=== PATIENT | female | born 1990 | race Caucasian/White ===

== ENCOUNTER 2020-06-22 07:50 | Outpatient (REF) | payer OTHER, SELFPAY | END 2020-06-22 07:51 | disposition home or self-care (01) | LOC: HO.LAB 07:50 | PROVIDERS: PCP Internal Medicine Sports Medicine; Visit Provider Internal Medicine | DX: Z20.828 Contact with and (suspected) exposure to other viral communicable diseases (principal) | CPT/HCPCS: C9803; U0003 ==

== ENCOUNTER 2020-10-12 09:26 | Outpatient (REF) | payer OTHER, SELFPAY ==
[2020-10-12 09:44] LABS: COVID-19 Test Negative (Negative); IDNOW Serial# 55D5AD1C
== END 2020-10-12 09:27 | disposition home or self-care (01) ==
LOC: HO.LAB 09:26
PROVIDERS: Visit Provider Internal Medicine
DX: Z20.822 Contact with and (suspected) exposure to COVID-19 (principal)
CPT/HCPCS: 36415; 87635; C9803

== ENCOUNTER 2020-11-07 20:42 | Emergency (ER) | payer OTHER, SELFPAY ==
[2020-11-07 20:47] VITALS: BP 130/95; PULSE 83; RESP 36; TEMP 36.8; O2SAT 98; BMI 32.9
--- NOTE | 2020-11-07 21:54 | ED.GENADULT ---
HPI - General Adult General Chief complaint: General Medical Stated complaint: Panic Attack Time Seen by Provider: 11/07/20 21:53 Source: patient Mode of arrival: ambulatory History of Present Illness HPI narrative: 30-year-old female without significant past medical history aside from longstanding history of anxiety and panic attack for which she has never been evaluated by a medical professional, nor has she ever received medication as per patient. She is unable to identify what her triggers are and denies discussing this with her primary care provider. However, on further questioning patient does states that she has been speaking to some unidentified woman at the clinic who has prescribed her medication that she is unable to remember, but then states that she was having difficulty activating the refills. On further questioning, patient was able to bring the pharmacy application up and assistance was provided to get her hydroxyzine prescription refilled and then patient was instructed to continue with the rest of her medication prescriptions. Patient states that she is unsure why she was receiving that medication, she does not understand her plan of care, and cites the fact that the provider who prescribed the medication do not speak with her in Armenian. 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 She denies any fevers, chills, shortness of breath, chest pain/palpitations, GI symptoms, or symptoms. She denies any use of cigarettes, alcohol, or drugs to include marijuana. Related Data Previous Rx's Medication Instructions Recorded sulfamethoxazole-trimethoprim 1 tab PO Q12H 3 Days #6 tab 11/07/20 [Bactrim DS] Allergies Allergy/AdvReac Type Severity Reaction Status Date / Time No Known Allergies Allergy Verified 11/07/20 20:46 Review of Systems Review of Systems: Pertinent positives and negatives as stated in HPI 10 point review of systems is otherwise negative. [facility] Past Medical History Source: nursing notes reviewed Medical History Panic attack Social History Social History Smoking Status: Never smoker Use of substances other than those prescribed or required for medical reasons: No Advance Directives: No Advance Directives Information Provided: No Patient : No Physical Exam Vital Signs: Vital Signs: Last Vital Signs Temp 98.0 F 11/07/20 22:00 Pulse 56 05/09/21 22:00 Resp 16 11/07/20 22:00 BP 107/69 11/07/20 22:00 Pulse Ox 99 11/07/20 22:00 Body Mass Index 32.9 VITAL SIGNS: Reviewed. GENERAL: Well developed, well nourished, in no acute distress. HEAD: Normocephalic/atraumatic EYES: PERRLA, EOMI OROPHARYNX: no oral lesions noted, posterior pharynx clear NECK: Supple, no adenopathy LUNGS: Normal breath sounds. No adventitious sounds or accessory muscle use. SpO2<99> CARDIOVASCULAR: Regular rate and rhythm without noted murmurs ABDOMEN: Soft, non-tender, non-distended with bowel sounds. NEUROLOGIC: Alert and oriented x 4. PSYCH: Tearful, anxious Course Course Course Narrative: 30-year-old female with history and clinical presentation consistent with panic attack although patient is able to be calm and speak clearly when performing other activities such as looking for her prescription on her phone. Patient was offered to speak with 1 of the crisis team members however she is declining at this time. Patient reassured that we will provide her with some medication as well as check basic lab work. She was able to refill her prescription of hydroxyzine and it is noted that she has also been prescribed prednisone as well as sertraline, but patient is unsure with sertraline is for but states that she was given the prednisone for her chronic sinusitis. Review of all investigations negative for any acute findings other than UTI for which she will receive initial antibiotics here in then be discharged with remaining prescription. On re-evaluation patient has had complete resolution of her panic/anxiety symptoms and has improved. She again endorses that she is not interested in speaking with anybody from the crisis team and feels comfortable with going home. Medical Decision Making Lab Data Result diagrams: 11/07/20 22:13 11/07/20 22:13 Labs: Lab Results 11/07/20 11/07/20 11/07/20 Range/Units 22:13 22:13 22:24 WBC 9.1 (4.8-10.8) X10*3/uL RBC 4.42 (4.20-5.50) X10*6/uL Hgb 13.4 (12.0-16.0) g/dl Hct 40.3 (37-47) % MCV 91.2 (80-98) fL MCH 30.3 (27.0-33.0) pg MCHC 33.3 (31.0-35.0) g/dl RDW 12.3 (11.0-16.0) % Plt Count 258 (160-400) X10*3/uL MPV 9.4 (9.4-12.3) fL Immature Gran % (Auto) 0.2 (0.0-0.4) % Neut % (Auto) 72.9 (45-73) % Lymph % (Auto) 19.5 L (20-40) % [place] % (Auto) 4.7 (2-11) % Eos % (Auto) 2.3 (0-4) % Baso % (Auto) 0.4 (0-2) % Lymph # (Auto) 1.8 (1.2-4.9) X10*3/uL [place] # (Auto) 0.4 (0.1-1.2) X10*3/uL Eos # (Auto) 0.2 (0.0-0.4) X10*3/uL Baso # (Auto) 0.0 (0.0-0.2) X10*3/uL Abs Immat Gran (auto) 0.02 (0.00-0.03) X10*3/uL Absolute Neuts (auto) 6.6 (2.0-8.3) X10*3/uL Absolute Nucleated RBC 0.000 (0.0-0.012) X10*3/uL Nucleated RBC % (auto) 0.0 (0.0-0.2) /100WBC Sodium 142 (135-145) mmol/L Potassium 3.9 (3.3-5.1) mmol/L Chloride 107 (96-108) mmol/L Carbon Dioxide 26 (22-29) mmol/L Anion Gap 13 (12-20) BUN 15 (9-16) mg/dL Creatinine 0.88 (0.5-1.4) mg/dL Estim Creat Clear Calc 91.6 Estimated GFR > 60 Random Glucose 91 (60-115) mg/dL Calcium 9.2 (8.4-10.2) mg/dL Total Bilirubin 0.6 (0.0-1.0) mg/dL AST 16 (5-31) U/L ALT 12 (0-31) U/L Alkaline Phosphatase 56 (39-117) U/L Total Protein 7.0 (6.5-8.0) g/dL Albumin 4.1 (3.5-5.0) g/dL TSH 0.41 (0.32-4.0) uIU/mL Urine Color YELLOW Urine Appearance HAZY Urine pH 6.5 (5.0-8.0) Ur Specific [place] 1.025 (1.005-1.025) Urine Protein NEG (NEG-TRACE) MG/DL Urine Glucose (UA) NEG (NEG) MG/DL Urine Ketones 5 (NEG) MG/DL Urine Blood NEG (NEG) Urine Nitrite POS H (NEG) Ur Leukocyte Esterase TRACE H (NEG) Urine RBC 0 (0) /HPF Urine WBC 10-14 H (0-4) /HPF Ur Squamous Epith Cells 3+ /LPF Urine Bacteria 4+ /LPF Urine Mucus 3+ /LPF Urine Test (NEGATIVE) Urine Opiates Screen (Not Detect) Ur Barbiturates Screen (Not Detect) Ur Phencyclidine Scrn (Not Detect) Ur Amphetamines Screen (Not Detect) U Benzodiazepines Scrn (Not Detect) Urine Cocaine Screen (Not Detect) U Marijuana (THC) Screen (Not Detect) 11/07/20 11/07/20 Range/Units 22:24 22:24 WBC (4.8-10.8) X10*3/uL RBC (4.20-5.50) X10*6/uL Hgb (12.0-16.0) g/dl Hct (37-47) % MCV (80-98) fL MCH (27.0-33.0) pg MCHC (31.0-35.0) g/dl RDW (11.0-16.0) % Plt Count (160-400) X10*3/uL MPV (9.4-12.3) fL Immature Gran % (Auto) (0.0-0.4) % Neut % (Auto) (45-73) % Lymph % (Auto) (20-40) % [place] % (Auto) (2-11) % Eos % (Auto) (0-4) % Baso % (Auto) (0-2) % Lymph # (Auto) (1.2-4.9) X10*3/uL [place] # (Auto) (0.1-1.2) X10*3/uL Eos # (Auto) (0.0-0.4) X10*3/uL Baso # (Auto) (0.0-0.2) X10*3/uL Abs Immat Gran (auto) (0.00-0.03) X10*3/uL Absolute Neuts (auto) (2.0-8.3) X10*3/uL Absolute Nucleated RBC (0.0-0.012) X10*3/uL Nucleated RBC % (auto) (0.0-0.2) /100WBC Sodium (135-145) mmol/L Potassium (3.3-5.1) mmol/L Chloride (96-108) mmol/L Carbon Dioxide (22-29) mmol/L Anion Gap (12-20) BUN (9-16) mg/dL Creatinine (0.5-1.4) mg/dL Estim Creat Clear Calc Estimated GFR Random Glucose (60-115) mg/dL Calcium (8.4-10.2) mg/dL Total Bilirubin (0.0-1.0) mg/dL AST (5-31) U/L ALT (0-31) U/L Alkaline Phosphatase (39-117) U/L Total Protein (6.5-8.0) g/dL Albumin (3.5-5.0) g/dL TSH (0.32-4.0) uIU/mL Urine Color Urine Appearance Urine pH (5.0-8.0) Ur Specific [place] (1.005-1.025) Urine Protein (NEG-TRACE) MG/DL Urine Glucose (UA) (NEG) MG/DL Urine Ketones (NEG) MG/DL Urine Blood (NEG) Urine Nitrite (NEG) Ur Leukocyte Esterase (NEG) Urine RBC (0) /HPF Urine WBC (0-4) /HPF Ur Squamous Epith Cells /LPF Urine Bacteria /LPF Urine Mucus /LPF Urine Test NEGATIVE (NEGATIVE) Urine Opiates Screen Not Detected (Not Detect) Ur Barbiturates Screen Not Detected (Not Detect) Ur Phencyclidine Scrn Not Detected (Not Detect) Ur Amphetamines Screen Not Detected (Not Detect) U Benzodiazepines Scrn Not Detected (Not Detect) Urine Cocaine Screen Not Detected (Not Detect) U Marijuana (THC) Screen Not Detected (Not Detect) Discharge Plan Discharge Clinical Impression: Anxiety, UTI (urinary tract infection) Patient Disposition: Home, Self-Care Instructions: Urinary Tract Infection in Women (ED), Anxiety (ED), Panic Attack (ED) Additional Instructions: Please follow-up with your primary care provider in the next 1-2 days for re-evaluation. Resume your home medications as prescribed. Do not hesitate to return to the emergency department should you have any acute worsening of symptoms. Prescriptions: New sulfamethoxazole-trimethoprim [Bactrim DS] 800-160 mg tablet 1 tab PO Q12H 3 Days Qty: 6 RF: 0 Referrals: Physician,Unknown [Primary Care Provider] - 2 days Print Language: Armenian
[2020-11-07 22:00] VITALS: BP 107/69; PULSE 56; RESP 16; TEMP 36.7; O2SAT 99
[2020-11-07] MEDS: hydrOXYzine HCL 25 MG TABLET PO (22:09)
[2020-11-07 22:18] LABS: MANUAL DIFF FLAG NO
[2020-11-07 22:32] LABS: Basophils Percent Auto 0.4 % (0-2); Eosinophils Absolute Auto 0.2 X10*3/uL (0.0-0.4); Eosinophils Percent Auto 2.3 % (0-4); Hematocrit 40.3 % (37-47); Hemoglobin 13.4 g/dl (12.0-16.0); Imm Gran Abs Auto 0.02 X10*3/uL (0.00-0.03); Imm Gran Pct Auto 0.2 % (0.0-0.4); Lymphocytes Absolute Auto 1.8 X10*3/uL (1.2-4.9); Lymphocytes Percent Auto 19.5 % (20-40); Mean Corpuscular HGB Conc 33.3 g/dl (31.0-35.0); Mean Corpuscular Hemoglobin 30.3 pg (27.0-33.0); Mean Corpuscular Volume 91.2 fL (80-98); Mean Platelet Volume 9.4 fL (9.4-12.3); Monocytes Absolute Auto 0.4 X10*3/uL (0.1-1.2); Monocytes Percent Auto 4.7 % (2-11); Neutrophils Absolute Auto 6.6 X10*3/uL (2.0-8.3); Neutrophils Percent Auto 72.9 % (45-73); Platelet Count 258 X10*3/uL (160-400); Red Blood Count 4.42 X10*6/uL (4.20-5.50); Red Cell Distribution Width 12.3 % (11.0-16.0); White Blood Count 9.1 X10*3/uL (4.8-10.8)
[2020-11-07 22:56] LABS: Alanine Aminotransferase 12 U/L (0-31); Albumin Level 4.1 g/dL (3.5-5.0); Alkaline Phosphatase 56 U/L (39-117); Anion Gap 13 (12-20); Aspartate Amino Transferase 16 U/L (5-31); Bilirubin Total 0.6 mg/dL (0.0-1.0); Blood Urea Nitrogen 15 mg/dL (9-16); Calcium 9.2 mg/dL (8.4-10.2); Carbon Dioxide 26 mmol/L (22-29); Chloride 107 mmol/L (96-108); Creatinine Clr Calc Pharmacy 91.6; Estimated Glomerular Filt Rate > 60; Glucose Random 91 mg/dL (60-115); Potassium 3.9 mmol/L (3.3-5.1); Sodium 142 mmol/L (135-145)
[2020-11-07 22:56] LABS: Glucose Urine UA NEG (NEG); Leukocyte Esterase Urine TRACE (NEG); Nitrite Urine POS (NEG); PH 6.5 (5.0-8.0); Specific Gravity - Urine 1.025 (1.005-1.025); UACC Culture Trigger YES; Urine Blood NEG (NEG); Urine Ketones 5 MG/DL (NEG); Urine Protein NEG (NEG-TRACE)
[2020-11-07 23:04] LABS: Appearance Urine HAZY; Color Urine YELLOW
[2020-11-07 23:07] LABS: UPreg QC Valid YES; Urine Pregnancy NEGATIVE (NEGATIVE)
[2020-11-07 23:16] LABS: TSH reflex Free T4 0.41 uIU/mL (0.32-4.0)
[2020-11-07 23:18] LABS: Bacteria Urine 4+ /LPF; Mucus Urine 3+ /LPF; RBC Urine 0 /HPF (0); Squamous Epithelial Cell Urine 3+ /LPF
[2020-11-07 23:30] LABS: Amphetamine Screen Urine Not Detected (Not Detect); Barbiturates, Urine Not Detected (Not Detect); Benzodiazepines Screen Urine Not Detected (Not Detect); Cannabinoid Screen Urine Not Detected (Not Detect); Cocaine Screen Urine Not Detected (Not Detect); Opiate Screen Urine Not Detected (Not Detect); Phencyclidine Screen Urine Not Detected (Not Detect)
== END 2020-11-08 00:24 | disposition home or self-care (01) ==
PROVIDERS: Emergency Provider Student in an Organized Health Care Education/Training Program
DX: F41.9 Anxiety disorder, unspecified (principal); F41.1 Generalized anxiety disorder; F43.0 Acute stress reaction; N39.0 Urinary tract infection, site not specified; Z79.899 Other long term (current) drug therapy
CPT/HCPCS: 36415; 80053; 80307; 81001; 81003; 81025; 84443; 85025; 87086; 87088; 87186; 99284

== ENCOUNTER 2021-10-15 19:11 | Emergency (ER) | payer OTHER, SELFPAY ==
--- NOTE | ~2021-10-15 | US_ITS ---
EXAMINATION: BILATERAL TRIPLEX SCANNING OF THE LOWER EXTREMITIES CLINICAL INFORMATION: Lower extremity swelling, recent surgery. COMPARISON: None. TECHNIQUE: Color-flow triplex imaging with spectral analysis and compression Doppler were performed on the lower extremities. FINDINGS: Respiratory variation, normal compression and augmented flow are noted throughout the lower extremities. The visualized common femoral vein, superficial femoral vein, profunda femoral vein, popliteal vein and mid calf peroneal and posterior tibial venous segments show no evidence of deep venous thrombosis. There is no Cohen's cyst. US/US venous duplex LE IMPRESSION: Normal triplex scan without evidence of deep venous thrombosis involving the lower extremities.
[2021-10-15 19:22] VITALS: BP 111/42; PULSE 69; RESP 14; TEMP 36.8; O2SAT 100; BMI 23.8
[2021-10-15 21:22] LABS: MANUAL DIFF FLAG NO
[2021-10-15 21:25] LABS: Basophils Percent Auto 0.5 % (0-2); Eosinophils Absolute Auto 0.3 X10*3/uL (0.0-0.4); Eosinophils Percent Auto 4.9 % (0-4); Hematocrit 36.3 % (37.0-47.0); Hemoglobin 11.6 g/dl (12.0-16.0); Imm Gran Abs Auto 0.01 X10*3/uL (0.00-0.03); Imm Gran Pct Auto 0.2 % (0.0-0.4); Mean Corpuscular Hemoglobin 27.8 pg (27.0-33.0); Mean Corpuscular Volume 87.1 fL (80.0-98.0); Mean Platelet Volume 9.7 fL (9.4-12.3); Monocytes Absolute Auto 0.6 X10*3/uL (0.1-1.2); Monocytes Percent Auto 9.8 % (2-11); Neutrophils Absolute Auto 3.6 x10*3/uL (2.0-8.3); Neutrophils Percent Auto 54.6 % (45-73); Platelet Count 299 X10*3/uL (160-400); Red Blood Count 4.17 X10*6/uL (4.20-5.50); Red Cell Distribution Width 12.4 % (11.0-16.0); White Blood Count 6.5 X10*3/uL (4.8-10.8)
[2021-10-15 21:33] LABS: INTERNATIONAL NORM RATIO 1.1 (0.9-1.1)
[2021-10-15 21:35] LABS: D Dimer High Sensitivity 320 NG/ML
[2021-10-15 21:39] LABS: Alanine Aminotransferase 14 U/L (0-31); Albumin Level 3.8 g/dL (3.5-5.0); Alkaline Phosphatase 63 U/L (39-117); Anion Gap 12 (12-20); Aspartate Amino Transferase 16 U/L (5-31); Bilirubin Total 0.4 mg/dL (0.0-1.0); Blood Urea Nitrogen 11 mg/dL (9-16); Calcium 9.1 mg/dL (8.4-10.2); Carbon Dioxide 24 mmol/L (22-29); Chloride 108 mmol/L (96-108); Estimated Glomerular Filt Rate > 60; Glucose Random 67 mg/dL (60-115); Sodium 140 mmol/L (135-145); Total Protein 6.9 g/dL (6.5-8.0)
[2021-10-15 21:42] LABS: B Type Natriuretic Peptide 27 pg/mL (<100)
[2021-10-15 22:05] VITALS: BP 101/57; PULSE 58; RESP 18; TEMP 37; O2SAT 100
[2021-10-15 22:40] LABS: Appearance Urine HAZY; Color Urine YELLOW; Glucose Urine UA NEG (NEG); Leukocyte Esterase Urine 1+ (NEG); Nitrite Urine NEG (NEG); Specific Gravity - Urine 1.015 (1.005-1.025); UACC Culture Trigger YES; UPreg QC Valid YES; Urine Blood NEG (NEG); Urine Ketones NEG (NEG); Urine Pregnancy NEGATIVE (NEGATIVE); Urine Protein NEG (NEG-TRACE)
--- NOTE | 2021-10-15 22:51 | ED.GENADULT ---
HPI - General Adult General Chief complaint: Extremity Injury, Lower Stated complaint: lower legs swollen and pain Time Seen by Provider: 10/15/21 19:56 Source: patient Mode of arrival: ambulatory History of Present Illness HPI narrative: 31-year-old female without significant past medical history presents after having undergone an abdominal plasty in [place] and now presents with bilateral lower leg swelling with complaints calf pain but denies any fever, chills, shortness of breath, chest pain/palpitations. Related Data Previous Rx's Medication Instructions Recorded sulfamethoxazole 800 1 tab PO Q12H 3 Days #6 tab 11/07/20 mg-trimethoprim 160 mg tablet (Bactrim DS) nitrofurantoin 100 mg PO Q12H 5 Days #10 cap 10/15/21 monohydrate/macrocrystals 100 mg capsule (Macrobid) Allergies Allergy/AdvReac Type Severity Reaction Status Date / Time No Known Allergies Allergy Verified 11/07/20 20:46 Review of Systems Review of Systems: Pertinent positives and negatives as stated in HPI 10 point review of systems is otherwise negative. PMFSH Past Medical History Source: nursing notes reviewed Medical History Panic attack Social History Social History Advance Directives: No Physical Exam ED Vital Signs: Vital Signs - 24 hr 10/15/21 19:22 10/15/21 22:05 Temperature 98.3 F 98.6 F Pulse Rate 69 58 Respiratory Rate 14 18 Blood Pressure 111/42 L 101/57 L Pulse Oximetry 100 100 BMI result Body Mass Index 23.8 VITAL SIGNS: Reviewed. GENERAL: Well developed, well nourished, in no acute distress. HEAD: Normocephalic/atraumatic EYES: PERRLA, EOMI EARS: Ext canals without abnormality OROPHARYNX: no oral lesions noted, posterior pharynx clear LUNGS: Normal breath sounds. No adventitious sounds or accessory muscle use. SpO2<100> CARDIOVASCULAR: Regular rate and rhythm without noted murmurs. ABDOMEN: Soft, non-tender, non-distended with bowel sounds, incision C/D/I without erythema/induration or drainage small dressing at the inferior aspect of the umbilicus that is clean dry and intact MUSCULOSKELETAL: No tenderness, deformities, or effusions noted on gross inspection. EXTREMITIES: No cyanosis, clubbing but patient has mild swelling to bilateral lower extremities that is nonpitting in nature, no color change, sensation is intact in palpable/symmetrical DP/PT. SKIN: Inspection of the skin reveals no rashes NEUROLOGIC: Alert and oriented x 4. Strength and sensation to light touch were grossly intact x 4. Course Course Course Narrative: 31-year-old female with history and clinical presentation on review of all investigations negative for evidence to suggest DVT and no symptoms to suggest PE. Patient is not having any difficulties with appetite or urination and her incision appears to be well approximated and no evidence of infection. On review of urinalysis findings are consistent with UTI patient was given initial antibiotics in the emergency room. All results discussed with her bedside she was discharged home in stable condition. Medical Decision Making Lab Data Result diagrams: 10/15/21 21:11 10/15/21 21:11 Labs: Lab Results 10/15/21 10/15/21 10/15/21 Range/Units 21:11 21:11 21:11 WBC 6.5 (4.8-10.8) X10*3/uL RBC 4.17 L (4.20-5.50) X10*6/uL Hgb 11.6 L (12.0-16.0) g/dl Hct 36.3 L (37.0-47.0) % MCV 87.1 (80.0-98.0) fL MCH 27.8 (27.0-33.0) pg MCHC 32.0 (31.0-35.0) g/dl RDW 12.4 (11.0-16.0) % Plt Count 299 (160-400) X10*3/uL MPV 9.7 (9.4-12.3) fL Immature Gran % (Auto) 0.2 (0.0-0.4) % Neut % (Auto) 54.6 (45-73) % Lymph % (Auto) 30.0 (20-40) % [place] % (Auto) 9.8 (2-11) % Eos % (Auto) 4.9 H (0-4) % Baso % (Auto) 0.5 (0-2) % Lymph # (Auto) 2.0 (1.2-4.9) X10*3/uL [place] # (Auto) 0.6 (0.1-1.2) X10*3/uL Eos # (Auto) 0.3 (0.0-0.4) X10*3/uL Baso # (Auto) 0.0 (0.0-0.2) X10*3/uL Abs Immat Gran (auto) 0.01 (0.00-0.03) X10*3/uL Absolute Neuts (auto) 3.6 (2.0-8.3) x10*3/uL Absolute Nucleated RBC 0.000 (0.0-0.012) X10*3/uL Nucleated RBC % (auto) 0.0 (0.0-0.2) /100WBC PT 13.0 (9.9-13.0) SEC INR 1.1 (0.9-1.1) APTT 41.0 H (24.1-38.0) SEC D-Dimer High Sensitivty 320 NG/ML Sodium 140 (135-145) mmol/L Potassium 4.0 (3.3-5.1) mmol/L Chloride 108 (96-108) mmol/L Carbon Dioxide 24 (22-29) mmol/L Anion Gap 12 (12-20) BUN 11 (9-16) mg/dL Creatinine 0.84 (0.5-1.4) mg/dL Estim Creat Clear Calc 76.0 Estimated GFR > 60 Random Glucose 67 (60-115) mg/dL Calcium 9.1 (8.4-10.2) mg/dL Total Bilirubin 0.4 (0.0-1.0) mg/dL AST 16 (5-31) U/L ALT 14 (0-31) U/L Alkaline Phosphatase 63 (39-117) U/L B-Natriuretic Peptide (<100) pg/mL Total Protein 6.9 (6.5-8.0) g/dL Albumin 3.8 (3.5-5.0) g/dL Urine Color Urine Appearance Urine pH (5.0-8.0) Ur Specific [place] (1.005-1.025) Urine Protein (NEG-TRACE) MG/DL Urine Glucose (UA) (NEG) MG/DL Urine Ketones (NEG) MG/DL Urine Blood (NEG) Urine Nitrite (NEG) Ur Leukocyte Esterase (NEG) Urine Test (NEGATIVE) 04/16/22 04/16/22 04/16/22 Range/Units 21:11 22:32 22:32 WBC (4.8-10.8) X10*3/uL RBC (4.20-5.50) X10*6/uL Hgb (12.0-16.0) g/dl Hct (37.0-47.0) % MCV (80.0-98.0) fL MCH (27.0-33.0) pg MCHC (31.0-35.0) g/dl RDW (11.0-16.0) % Plt Count (160-400) X10*3/uL MPV (9.4-12.3) fL Immature Gran % (Auto) (0.0-0.4) % Neut % (Auto) (45-73) % Lymph % (Auto) (20-40) % [place] % (Auto) (2-11) % Eos % (Auto) (0-4) % Baso % (Auto) (0-2) % Lymph # (Auto) (1.2-4.9) X10*3/uL [place] # (Auto) (0.1-1.2) X10*3/uL Eos # (Auto) (0.0-0.4) X10*3/uL Baso # (Auto) (0.0-0.2) X10*3/uL Abs Immat Gran (auto) (0.00-0.03) X10*3/uL Absolute Neuts (auto) (2.0-8.3) x10*3/uL Absolute Nucleated RBC (0.0-0.012) X10*3/uL Nucleated RBC % (auto) (0.0-0.2) /100WBC PT (9.9-13.0) SEC INR (0.9-1.1) APTT (24.1-38.0) SEC D-Dimer High Sensitivty NG/ML Sodium (135-145) mmol/L Potassium (3.3-5.1) mmol/L Chloride (96-108) mmol/L Carbon Dioxide (22-29) mmol/L Anion Gap (12-20) BUN (9-16) mg/dL Creatinine (0.5-1.4) mg/dL Estim Creat Clear Calc Estimated GFR Random Glucose (60-115) mg/dL Calcium (8.4-10.2) mg/dL Total Bilirubin (0.0-1.0) mg/dL AST (5-31) U/L ALT (0-31) U/L Alkaline Phosphatase (39-117) U/L B-Natriuretic Peptide 27 (<100) pg/mL Total Protein (6.5-8.0) g/dL Albumin (3.5-5.0) g/dL Urine Color YELLOW Urine Appearance HAZY Urine pH 7.0 (5.0-8.0) Ur Specific [place] 1.015 (1.005-1.025) Urine Protein NEG (NEG-TRACE) MG/DL Urine Glucose (UA) NEG (NEG) MG/DL Urine Ketones NEG (NEG) MG/DL Urine Blood NEG (NEG) Urine Nitrite NEG (NEG) Ur Leukocyte Esterase 1+ H (NEG) Urine Test NEGATIVE (NEGATIVE) Discharge Plan Discharge Clinical Impression: Swelling of both lower extremities, UTI (urinary tract infection), Hx of abdominoplasty Patient Disposition: Home, Self-Care Instructions: Urinary Tract Infection in Women (DC), Leg Edema (ED) Additional Instructions: 1. Recommend compression stockings to bilateral lower legs, decrease salt intake. 2. Complete the entire course of antibiotics for your urinary tract infection. 3. Follow-up with your primary care provider for re-evaluation. Return to the ER for worsening symptoms. Prescriptions: New nitrofurantoin monohyd/m-cryst [Macrobid] 100 mg capsule 100 mg PO Q12H 5 Days Qty: 10 0RF Rx Instructions: must administer with a meal/food No Action sulfamethoxazole-trimethoprim [Bactrim DS] 800-160 mg tablet 1 tab PO Q12H 3 Days Qty: 6 0RF Referrals: Ibis Jackson MD [Primary Care Provider] -
[2021-10-15 23:08] LABS: Bacteria Urine TRACE /LPF; Mucus Urine TRACE /LPF; RBC Urine 0-2 /HPF (0); Squamous Epithelial Cell Urine 3+ /LPF
--- NOTE | 2021-10-15 23:38 | PC.NURSE ---
Pt left ER before receiving their discharge papers. Sg RN will call pt to remind her of her Macrobid prescription and go over her discharge instructions over the phone.
--- NOTE | 2021-10-15 23:41 | PC.NURSE ---
Unable to reach pt on her phone, left a message on pt's voicemail communicating discharge instructions.
== END 2021-10-15 23:44 | disposition home or self-care (01) ==
PROVIDERS: Emergency Medicine Emergency Medical Services; Emergency Provider Student in an Organized Health Care Education/Training Program; PCP Internal Medicine
DX: M79.89 Other specified soft tissue disorders (principal); N39.0 Urinary tract infection, site not specified; M79.604 Pain in right leg; M79.605 Pain in left leg; Z98.890 Other specified postprocedural states
CPT/HCPCS: 36415; 80053; 81001; 81025; 83880; 85025; 85379; 85610; 85730; 87086; 93970; 99284

== ENCOUNTER 2021-11-21 19:54 | Emergency (ER) | payer OTHER, SELFPAY ==
[2021-11-21 20:12] VITALS: BP 133/73; PULSE 68; RESP 18; TEMP 36.2; O2SAT 100; BMI 30.2
[2021-11-21 21:55] LABS: Basophils Percent Auto 0.3 % (0-2); Eosinophils Absolute Auto 0.4 X10*3/uL (0.0-0.4); Eosinophils Percent Auto 4.3 % (0-4); Hematocrit 37.5 % (37.0-47.0); Hemoglobin 11.7 g/dl (12.0-16.0); Imm Gran Abs Auto 0.02 X10*3/uL (0.00-0.03); Imm Gran Pct Auto 0.2 % (0.0-0.4); Lymphocytes Absolute Auto 1.9 X10*3/uL (1.2-4.9); Lymphocytes Percent Auto 21.9 % (20-40); MANUAL DIFF FLAG NO; Mean Corpuscular HGB Conc 31.2 g/dl (31.0-35.0); Mean Corpuscular Hemoglobin 27.1 pg (27.0-33.0); Mean Corpuscular Volume 86.8 fL (80.0-98.0); Mean Platelet Volume 9.4 fL (9.4-12.3); Monocytes Absolute Auto 0.7 X10*3/uL (0.1-1.2); Monocytes Percent Auto 7.9 % (2-11); Neutrophils Absolute Auto 5.7 x10*3/uL (2.0-8.3); Neutrophils Percent Auto 65.4 % (45-73); Platelet Count 245 X10*3/uL (160-400); Red Blood Count 4.32 X10*6/uL (4.20-5.50); White Blood Count 8.8 X10*3/uL (4.8-10.8)
[2021-11-21 22:11] LABS: Anion Gap 12 (12-20); Blood Urea Nitrogen 13 mg/dL (9-16); Calcium 8.8 mg/dL (8.4-10.2); Carbon Dioxide 23 mmol/L (22-29); Chloride 110 mmol/L (96-108); Creatinine Clr Calc Pharmacy 74.2; Estimated Glomerular Filt Rate > 60; Glucose Random 110 mg/dL (60-115); Sodium 141 mmol/L (135-145)
--- NOTE | 2021-11-21 23:35 | ED_ITS ---
HPI - General Adult General Chief complaint: General Medical Stated complaint: Abscess Time Seen by Provider: 11/21/21 21:09 Source: patient Mode of arrival: ambulatory Limitations: no limitations History of Present Illness HPI narrative: 31-year-old female 2 months status post tummy tuck done in [place] presents to the emergency department with complaints of redness, swelling along the surgical incision site x2 days progressively worsening. Patient tells me that this started 2 days ago and has been worsening in terms of pain, and redness. Patient tells me that the area is warm to the touch, red, hard and very painful. Patient tells me she has not had any postoperative follow-up appointments. No complications with surgery. Patient reports 10/10 lb pain at the site. Denies changes in urination, abdominal pain, fevers, chills, nausea, vomiting, changes in bowel habits, chest pain, shortness of breath, discharge from the site. Onset (ago): day(s) (2) Location: abdomen Radiation: non-radiation Severity: moderate Pain Consistency: constant Relieving factors: none Exacerbating factors: none Associated symptoms: denies other symptoms Treatments prior to arrival: none Related Data Previous Rx's Medication Instructions Recorded sulfamethoxazole 800 1 tab PO Q12H 3 Days #6 tab 11/07/20 mg-trimethoprim 160 mg tablet (Bactrim DS) nitrofurantoin 100 mg PO Q12H 5 Days #10 cap 10/15/21 monohydrate/macrocrystals 100 mg capsule (Macrobid) cephalexin 500 mg tablet 500 mg PO Q6H 10 Days #40 tab 11/21/21 doxycycline hyclate 100 mg capsule 100 mg PO BID 10 Days #20 cap 11/21/21 Allergies Allergy/AdvReac Type Severity Reaction Status Date / Time No Known Allergies Allergy Verified 11/07/20 20:46 Review of Systems Review of Systems: Constitutional : No Weight loss, No Fever, No Chills, No Fatigue, No Malaise ENT/Mouth : No sore throat, No Rhinorrhea Eyes: No Eye Pain, No Swelling, No Redness Cardiovascular : No Chest Pain, No SOB, No Dyspnea on Exertion, No Orthopnea, No Edema, No Palpitations Respiratory : No Cough, No Sputum, No Wheezing Gastrointestinal : No Nausea, No Vomiting, No Diarrhea, No Constipation, No abdominal Pain, No Hematochezia, No Melena Genitourinary : No Dysuria, No Urinary Frequency, No Hematuria, Musculoskeletal : No joint pain, No Myalgias, No Joint Swelling Skin : No Skin Lesions, + rash Neuro : No Weakness, No Numbness, No Dizziness, No Headache Psych : No Anxiety/Panic, No Depression All other systems reviewed and are negative Yes all other systems are reviewed and are negative [facility] Past Medical History Attestation statement: The following information was validated with the patient. Source: old records reviewed and nursing notes reviewed Medical History Panic attack Physical Exam ED Vital Signs: Vital Signs - 24 hr 11/21/21 20:12 Temperature 97.2 F Pulse Rate 68 Respiratory Rate 18 Blood Pressure 133/73 Pulse Oximetry 100 BMI result Body Mass Index 30.2 Vital signs stable Appearance: Alert.? Oriented X3.? No acute distress.? Head: Normocephalic, atraumatic, no step-offs or deformities Eyes: Pupils equal, round and reactive to light.? ENT: Pharynx normal.? Neck: Normal inspection.? Neck supple.? CVS: Normal heart rate and rhythm.? Pulses normal.? Respiratory: No respiratory distress.? Breath sounds normal.? Abdomen: Soft and nontender.? Skin: Skin warm and dry.? Normal skin color.? Normal skin turgor.?+ indurated, erythematous area with out drainage, or purulence, surrounding surgical scar images attached. No drainable abcess noted. Extremities: No lower extremity edema.? No calf ttp. 5/5 strength to bilateral upper and lower extremities Back: No midline tenderness, no C-spine tenderness, full range of motion, no CVA tenderness bilaterally Neuro: Oriented X 3.? No motor deficit.? No sensory deficit. CN 2-12 intact Course Reevaluation(s) Reevaluation #1: Patient's CBC appears to be at baseline, no leukocytosis, no acute electrolyte abnormalities requiring intervention. There is no drainable abscesses therefore patient will be treated for cellulitis and will be started on dual treatment with doxycycline and Keflex times 10 days. I advised her to follow-up with her PCP and or a wound clinic. I also advised her to call her surgeon or follow-up with her surgeon. At this time patient will be discharged home with an tibiotics. Advised her of worrisome signs and symptoms. Comfortable with discharge home. Time: 23:52 Medical Decision Making MDM Narrative Medical decision making narrative: [id number] 31-year-old female 2 months postop from a tummy tuck done in [place] with out any follow-up presents to the emergency department with redness, swelling, and an indurated area along the incision site x2 days worsening. Denies fevers, chills, abdominal pain, changes in urination. Physical examination significant for an erythematous, indurated, warm area along the incision site. Without drainable abscess. Images attached in the chart. No palpable lymphadenopathy, abdomen soft nontender nondistended, regular rate and rhythm, lungs clear, neuro exam nonfocal. Plan at this time is basic labs. Medical Records Medical records reviewed: Yes I reviewed the patient's medical records. Lab Data Lab results reviewed: Yes I reviewed the patient's lab results. Result diagrams: 11/21/21 21:49 11/21/21 21:49 Labs: Lab Results 11/21/21 11/21/21 Range/Units 21:49 21:49 WBC 8.8 (4.8-10.8) X10*3/uL RBC 4.32 (4.20-5.50) X10*6/uL Hgb 11.7 L (12.0-16.0) g/dl Hct 37.5 (37.0-47.0) % MCV 86.8 (80.0-98.0) fL MCH 27.1 (27.0-33.0) pg MCHC 31.2 (31.0-35.0) g/dl RDW 13.0 (11.0-16.0) % Plt Count 245 (160-400) X10*3/uL MPV 9.4 (9.4-12.3) fL Immature Gran % (Auto) 0.2 (0.0-0.4) % Neut % (Auto) 65.4 (45-73) % Lymph % (Auto) 21.9 (20-40) % Henderson % (Auto) 7.9 (2-11) % Eos % (Auto) 4.3 H (0-4) % Baso % (Auto) 0.3 (0-2) % Lymph # (Auto) 1.9 (1.2-4.9) X10*3/uL Henderson # (Auto) 0.7 (0.1-1.2) X10*3/uL Eos # (Auto) 0.4 (0.0-0.4) X10*3/uL Baso # (Auto) 0.0 (0.0-0.2) X10*3/uL Abs Immat Gran (auto) 0.02 (0.00-0.03) X10*3/uL Absolute Neuts (auto) 5.7 (2.0-8.3) x10*3/uL Absolute Nucleated RBC 0.000 (0.0-0.012) X10*3/uL Nucleated RBC % (auto) 0.0 (0.0-0.2) /100WBC Sodium 141 (135-145) mmol/L Potassium 4.0 (3.3-5.1) mmol/L Chloride 110 H (96-108) mmol/L Carbon Dioxide 23 (22-29) mmol/L Anion Gap 12 (12-20) BUN 13 (9-16) mg/dL Creatinine 1.03 (0.5-1.4) mg/dL Estim Creat Clear Calc 74.2 Estimated GFR > 60 Random Glucose 110 (60-115) mg/dL Calcium 8.8 (8.4-10.2) mg/dL Critical Care Time Critical Care Time Critical Care Time: No Discharge Plan Discharge Clinical Impression: Cellulitis Patient Disposition: Home, Self-Care Instructions: Cellulitis (ED), Warm Compress or Soak (ED) Additional Instructions: Take your medications as prescribed. If you were prescribed antibiotics today, it is important that you take your medication to their entirety, do not skip any doses, do not finish them early. Follow-up with your primary care provider this week. Follow-up with wound care your primary care provider as soon as possible, this is a surgical procedure that requires close follow-up. Apply warm compresses to the area. Return to the emergency department with new or worsening symptoms. Such as fevers, chills, chest pain, shortness of breath, nausea, vomiting, dizziness, h eadache, vision changes, lethargy, worsening redness, swelling or abscess formation In case of emergency call 911 Prescriptions: New doxycycline hyclate 100 mg capsule 100 mg PO BID 10 Days Qty: 20 0RF cephalexin 500 mg tablet 500 mg PO Q6H 10 Days Qty: 40 0RF No Action sulfamethoxazole-trimethoprim [Bactrim DS] 800-160 mg tablet 1 tab PO Q12H 3 Days Qty: 6 0RF nitrofurantoin monohyd/m-cryst [Macrobid] 100 mg capsule 100 mg PO Q12H 5 Days Qty: 10 0RF Rx Instructions: must administer with a meal/food Referrals: Physician,Serena J [Primary Care Provider] - 1 day Stand Alone Forms: Work/School Release Interventions: LWBS Worksheet Last Done: 11/21/21 23:06
[2021-11-22] MEDS: Ketorolac Tromethamine 15 MG/ML VIAL 30 MG IM (00:22)
[2021-11-22 00:29] VITALS: BP 121/72; PULSE 70; RESP 16; TEMP 37.1; O2SAT 95
== END 2021-11-22 00:57 | disposition home or self-care (01) ==
LOC: HO.ED 11-22 00:57
PROVIDERS: Emergency Provider Emergency Medicine
DX: L03.311 Cellulitis of abdominal wall (principal); R10.9 Unspecified abdominal pain; Z79.899 Other long term (current) drug therapy
CPT/HCPCS: 36415; 80048; 85025; 96372; 99284; J1885

== ENCOUNTER 2022-06-12 17:02 | Emergency (ER) | payer OTHER, SELFPAY ==
[2022-06-12 17:09] VITALS: BP 119/98; PULSE 78; RESP 18; TEMP 36.8; O2SAT 100; BMI 31.1
--- NOTE | 2022-06-12 17:40 | ED_ITS ---
HPI - Wound/Laceration General Chief Complaint: Wound/Laceration <Piper Hodges NP - Last Filed: 06/12/22 17:43> Stated Complaint: finger lac <Piper Hodges NP - Last Filed: 06/12/22 17:43> Time Seen by Provider: 06/12/22 18:08 <Piper Hodges NP - Last Filed: 06/12/22 17:43> Source: patient <ALLYSON Wilcox - Last Filed: 06/12/22 19:59> Mode of arrival: ambulatory <ALLYSON Wilcox - Last Filed: 06/12/22 19:59> Limitations: no limitations <ALLYSON Wilcox Last Filed: 06/12/22 19:59> History of Present Illness HPI narrative: 31-year-old female presents to the ER for evaluation of laceration on her right hand that she sustained just prior to arrival when she was washing dishes and a glass broke. She states on the back of her right hand over her knuckle of the 1st digit she has a C-shaped laceration. She was able to control the bleeding with direct pressure. She is able to fully bend and extend the digit. She denies any numbness, weakness, tingling. She is right-hand dominant. She is not on anticoagulation. <ALLYSON Wilcox - Last Filed: 06/12/22 19:59> Onset (ago): minute(s) <ALLYSON Wilcox Last Filed: 06/12/22 19:59> Extremity Location: right: hand (Dorsal aspect of the 1st MCP) <ALLYSON Wilcox - Last Filed: 06/12/22 19:59> Place: home <ALLYSON Wilcox Last Filed: 06/12/22 19:59> Patient tetanus UTD: No <ALLYSON Wilcox Last Filed: 06/12/22 19:59> Context: accidental <ALLYSON Wilcox Last Filed: 06/12/22 19:59> Associated symptoms: pain <ALLYSON Wilcox Last Filed: 06/12/22 19:59> Treatments prior to arrival: bandage <ALLYSON Wilcox Last Filed: 06/12/22 19:59> Related Data Home Medications: Previous Rx's Medication Instructions Recorded sulfamethoxazole 800 1 tab PO Q12H 3 days #6 tabs 11/07/20 mg-trimethoprim 160 mg tablet (Bactrim DS) nitrofurantoin 100 mg PO Q12H 5 days #10 caps 10/15/21 monohydrate/macrocrystals 100 mg capsule (Macrobid) cephalexin 500 mg tablet 500 mg PO Q6H 10 days #40 tabs 11/21/21 doxycycline hyclate 100 mg capsule 100 mg PO BID 10 days #20 caps 11/21/21 <Piper Hodges NP - Last Filed: 06/12/22 17:43> Allergies/Adverse Reactions: Allergies Allergy/AdvReac Type Severity Reaction Status Date / Time No Known Allergies Allergy Verified 11/07/20 20:46 <Piper Hodges NP - Last Filed: 06/12/22 17:43> Review of Systems Review of Systems: Constitutional: No Fever, No Chills Cardiovascular: No Chest Pain, No SOB Gastrointestinal: No Nausea, No Vomiting Musculoskeletal: + joint pain, No joint swelling Skin: + Skin Lesions, No rash Neuro: No Weakness, No Numbness Psych: + Anxiety/Panic Heme/Lymph: No Bruising <ALLYSON Wilcox - Last Filed: 06/12/22 19:59> [facility] Past Medical History Medical History: Medical History Panic attack <Piper Hodges NP - Last Filed: 06/12/22 17:43> Social History Social History: Social History Alcohol intake: never Advance Directives: No Advance Directives Information Provided: No <Piper Hodges NP - Last Filed: 06/12/22 17:43> Physical Exam Vital Signs: Vital Signs: Last Vital Signs Temp 98.2 F 06/12/22 17:09 Pulse 78 06/12/22 17:09 Resp 18 06/12/22 17:09 BP 119/98 H 06/12/22 17:09 Pulse Ox 100 06/12/22 17:09 O2 Del Method 06/12/22 17:09 BMI result Body Mass Index 31.1 <Piper Hodges NP - Last Filed: 06/12/22 17:43> Vital Signs: Last Vital Signs Temp 98.2 F 06/12/22 17:09 Pulse 78 06/12/22 17:09 Resp 18 06/12/22 17:09 BP 119/98 H 06/12/22 17:09 Pulse Ox 100 06/12/22 17:09 O2 Del Method 06/12/22 17:09 BMI result Body Mass Index 31.1 <ALLYSON Wilcox - Last Filed: 06/12/22 19:59> Appearance: Alert. Oriented X3. No acute distress. HEENT: normal inspection CVS: Normal heart rate and rhythm. Pulses normal. Respiratory: No respiratory distress. Speaks in complete sentences Skin: Skin warm and dry. Normal skin color. Normal skin turgor. No rashes. Extremities: Dorsal aspect of the 1st MCP on the right hand with a C-shaped laceration, approximately 3.5 cm in length. No active bleeding. Superficial, not a complete flap or avulsion. Deep structures are intact. She is able to extend and bend at the MCP, PIP and D IP joints. Neurovascularly intact distally with cap refill less than 2 seconds. No active bleeding. Neuro: Oriented X 3. No motor deficit. No sensory deficit. <ALLYSON Wilcox - Last Filed: 06/12/22 19:59> Course Course Course Narrative: This is rapid medical exam. Deferred additional HPI, ROS and PE to primary provider. 31-year-old female [id number] here with laceration t o the right hand. Patient reports 1 piece of broken glass cut the right hand prior to arrival. Tetanus status is unknown. Full range of motion of the hand. Will need procedure for sutures placement. <Piper Hodges NP - Last Filed: 06/12/22 17:43> Reevaluation(s) Reevaluation #1: Patient agreeable to laceration repair. She tolerated it well. See procedure note. He was given counseling on wound care. Stable for DC home. <ALLYSON Wilcox - Last Filed: 06/12/22 19:59> Medications Administered Discontinued Medications Generic Name Dose Route Start Last Admin Trade Name Freq PRN Reason Stop Dose Admin Diphtheria/Tetanus/Acell Pertussis 0.5 ml 06/12/22 18:08 06/12/22 18:51 Diphth,Pertus(Acell),Tet Adult 0.5 Ml Syringe IM 06/12/22 18:09 0.5 ml .ONCE ONE Administration <Piper Hodges NP - Last Filed: 06/12/22 17:43> Medications Administered Discontinued Medications Generic Name Dose Route Start Last Admin Trade Name Freq PRN Reason Stop Dose Admin Diphtheria/Tetanus/Acell Pertussis 0.5 ml 06/12/22 18:08 06/12/22 18:51 Diphth,Pertus(Acell),Tet Adult 0.5 Ml Syringe IM 06/12/22 18:09 0.5 ml .ONCE ONE Administration <ALLYSON Wlicox - Last Filed: 06/12/22 19:59> Procedures Laceration Laceration 1: Site: hand <ALLYSON Wilcox - Last Filed: 06/12/22 19:59> Side (If applicable): right <ALLYSON Wilcox - Last Filed: 06/12/22 19:59> Size (cm): 3.5 <ALLYSON Wilcox - Last Filed: 06/12/22 19:59> Description: flap <ALLYSON Wilcox - Last Filed: 06/12/22 19:59> Depth: simple, single layer <ALLYSON Wilcox - Last Filed: 06/12/22 19:59> Local Anesthetic: lidocaine 1% <ALLYSON Wilcox - Last Filed: 06/12/22 19:59> Amount of anesthesia used (mL): 2 <ALLYSON Wilcox Last Filed: 06/12/22 19:59> Pre-repair: wound explored, irrigated extensively and deep structures intact <ALLYSON Wilcox Last Filed: 06/12/22 19:59> Skin layer closed with: nylon <ALLYSON Wilcox - Last Filed: 06/12/22 19:59> Size (cm): 4-0 <ALLYSON Wilcox - Last Filed: 06/12/22 19:59> Number of sutures: 10 <ALLYSON Wilcox - Last Filed: 06/12/22 19:59> Technique: simple, interrupted <ALLYSON Wilcox - Last Filed: 06/12/22 19:59> Discharge Plan Discharge Clinical Impression: Laceration <Piper Hodges NP - Last Filed: 06/12/22 17:43> Patient Disposition: Home, Self-Care <Piper Hodges NP - Last Filed: 06/12/22 17:43> Instructions: Laceration (ED) <Piper Hodges NP - Last Filed: 06/12/22 17:43> Additional Instructions: You will need your stitches out in 7-10 days. See you doctor for this or come back to the ER and we will remove them. Do not get wet for 24 hours, after that you can briefly wash with soap and water then pat dry. Keep wound clean and covered. Allow open to air for several hours per day. Do not submerge in water. Make motrin or tylenol as needed for pain. If you develop signs of infection including increased pain, swelling, redness or drainage of pus come back to the ER for further evaluation. <Piper Hodges NP - Last Filed: 06/12/22 17:43> Prescriptions: No Action sulfamethoxazole-trimethoprim [Bactrim DS] 800-160 mg tablet 1 tab PO Q12H 3 Days Qty: 6 0RF nitrofurantoin monohyd/m-cryst [Macrobid] 100 mg capsule 100 mg PO Q12H 5 Days Qty: 10 0RF Rx Instructions: must administer with a meal/food doxycycline hyclate 100 mg capsule 100 mg PO BID 10 Days Qty: 20 0RF cephalexin 500 mg tablet 500 mg PO Q6H 10 Days Qty: 40 0RF <Piper Hodges NP - Last Filed: 06/12/22 17:43> Interventions: ED Discharge Assessment Last Done: 06/12/22 18:57 <Piper Hodges NP - Last Filed: 06/12/22 17:43> Discharge Date/Time: 06/12/22 18:57 <Piper Hodges NP - Last Filed: 06/12/22 17:43>
[2022-06-12] MEDS: Diphth,Pertus(ACell),Tet Adult 0.5 ML SYRINGE IM (18:51)
== END 2022-06-12 18:57 | disposition home or self-care (01) ==
PROVIDERS: Emergency Provider Emergency Medicine; PCP Internal Medicine
DX: S61.411A Laceration without foreign body of right hand, initial encounter (principal); W25.XXXA Contact with sharp glass, initial encounter; Y93.G1 Activity, food preparation and clean up; Y92.030 Kitchen in apartment as the place of occurrence of the external cause; Y99.9 Unspecified external cause status
CPT/HCPCS: 12002; 90471; 90715; 99282; 99284

== ENCOUNTER 2022-09-09 10:44 | Emergency (ER) | payer OTHER, SELFPAY ==
--- NOTE | ~2022-09-09 | XR_ITS ---
EXAMINATION: XR CHEST CLINICAL INFORMATION: Cough, shortness of breath and wheezing COMPARISON: 07/22 2018 TECHNIQUE: Frontal view of the chest was obtained. FINDINGS: Compared to the prior study, there is mild increase in peribronchial thickening., No infiltrates, effusions or lung masses are seen. Heart size normal. No evidence of CHF. XR/XR chest 1V IMPRESSION: Mild increase in peribronchial thickening. No acute intrathoracic disease.
[2022-09-09 10:47] VITALS: BP 133/88; PULSE 84; RESP 18; TEMP 36.5; O2SAT 96; BMI 31.1
--- NOTE | 2022-09-09 12:40 | ED_ITS ---
HPI - URI/Sore Throat General Chief Complaint: Upper Respiratory Symptoms Stated Complaint: Chest pain Time Seen by Provider: 09/09/22 12:31 Source: patient Mode of arrival: ambulatory Limitations: no limitations History of Present Illness HPI Narrative: 32 y.o female w/no significant PMHx who presents to the ED c/o nasal/chest congestion, intermittent sore throat, and chest pain associated with non- productive cough x1 day. Also reports 3 episodes of emesis on 09/07 which has since resolved. Denies fever, chills, SOB, abdominal pain, diarrhea, pedal edema or known sick contacts. Endorses recent travel to [place] with return on 09/06. MD elicited complaint: cough, rhinorrhea and nasal congestion Onset (ago): day(s) Related Data Previous Rx's Medication Instructions Recorded sulfamethoxazole 800 1 tab PO Q12H 3 days #6 tabs 11/07/20 mg-trimethoprim 160 mg tablet (Bactrim DS) nitrofurantoin 100 mg PO Q12H 5 days #10 caps 10/15/21 monohydrate/macrocrystals 100 mg capsule (Macrobid) cephalexin 500 mg tablet 500 mg PO Q6H 10 days #40 tabs 11/21/21 doxycycline hyclate 100 mg capsule 100 mg PO BID 10 days #20 caps 11/21/21 albuterol sulfate 90 mcg/actuation 2 puff inhalation Q4-6H PRN 09/09/22 aerosol inhaler shortness of breath or wheezing #6.7 grams benzonatate 100 mg capsule 100 mg PO TID PRN cough #14 caps 09/09/22 fluticasone propionate 50 2 spray intranasal DAILY #16 grams 09/09/22 mcg/actuation nasal spray,suspension (Flonase Allergy Relief) prednisone 20 mg tablet 40 mg PO DAILY 5 days #10 tabs 09/09/22 Allergies Allergy/AdvReac Type Severity Reaction Status Date / Time No Known Allergies Allergy Verified 11/07/20 20:46 Review of Systems Review of Systems: Constitutional: No Fever, No Chills, +Malaise ENT/Mouth: +Nasal Congestion, No Sinus Pain, + sore throat, + Rhinorrhea, No Swallowing Difficulty Eyes: No Vision Changes Cardiovascular: + Chest Pain associated with cough, No SOB, No Dyspnea on Exertion Respiratory: +Cough, +Sputum, No Dyspnea Gastrointestinal: No Nausea, +Vomiting, No Diarrhea, No Constipation, No Abdominal pain, No Hematochezia, No Melena Genitourinary: No Dysuria, No Urinary Frequency, No Hematuria, Musculoskeletal: No joint pain, No Myalgias, No Joint Swelling Skin: No Skin Lesions, No rash Neuro No Dizziness, No Headache Yes all other systems are reviewed and are negative Constitutional: Constitutional: Reports as per [facility] Past Medical History Attestation statement: The following information was validated with the patient. Medical History Panic attack Social History Social History Alcohol intake: never Advance Directives: No Advance Directives Information Provided: Yes Physical Exam Vital Signs: Vital Signs: Last Vital Signs Temp 98.8 F 09/09/22 15:17 Pulse 106 H 09/09/22 15:17 Resp 16 09/09/22 15:17 BP 134/77 09/09/22 15:17 Pulse Ox 98 09/09/22 15:17 O2 Del Method 09/09/22 15:17 BMI result Body Mass Index 31.1 Const: General: cooperative, healthy appearing and no acute distress Orientation/consciousness: patient oriented x3 Limitations: no limitations HEENT: Head: Yes normal to inspection and Yes atraumatic Ears: hearing grossly normal bilaterally and TM's normal bilaterally General nose exam: Nasal discharge present Face and sinus: Yes normal facial exam Mouth: no drooling Throat: Yes tonsils normal (1+ without exudates ) and Yes uvula midline Eyes: General: appearance normal, both eyes and all related structures EOM: EOMs intact bilaterally Neck: Neck: Yes normal visual inspection and Yes no meningeal signs Resp: Effort & Inspection: normal respiratory effort, able to speak in complete sentences, Actively coughing Quality: wet, no respiratory distress, no retractions, no tripod positioning and no use of accessory muscles Auscultation: wheezes expiratory wheezes and throughout Cardio: Rate: regular rate Heart sounds: S1 normal heart sound present and S2 normal heart sound present GI: Inspection: Yes normal to inspection Palpation (GI): Soft to palpation, nontender, no guarding and not rigid Neuro: General: patient oriented x3, tone normal and no meningeal signs Gait exam (Neuro): Normal gait present Extrem: General: Yes normal to inspection, Yes no pedal edema and Yes no calf tenderness Course Course Course Narrative: -COVID-19/influenza/RSV negative >1430--on re-evaluation after DuoNeb lungs CTA. Patient reports symptomatic improvement XR chest 1V IMPRESSION: Mild increase in peribronchial thickening. No acute intrathoracic disease. ? Results discussed with patient including worrisome signs and symptoms and strict return precautions, and when to return to the emergency department. They verbalized understanding and feel safe for discharge at this time. Medications Administered Discontinued Medications Generic Name Dose Route Start Last Admin Trade Name Freq PRN Reason Stop Dose Admin Albuterol Sulfate 5 mg 09/09/22 13:01 09/09/22 13:17 Albuterol Sulfate (0.083%) 2.5 Mg/3 Ml Vial.Neb INHALE 09/09/22 13:02 5 mg ONCE ONE Administration Benzonatate 100 mg 09/09/22 13:01 09/09/22 13:17 Benzonatate 100 Mg Capsule PO 09/09/22 13:02 100 mg ONCE ONE Administration Hydrocodone Bit/Homatropine Methylb 5 ml 09/09/22 13:01 09/09/22 13:17 Hydrocodone/Homat 5/1.5/5 Ml 5 Ml Syrup PO 09/09/22 13:02 5 ml ONCE ONE Administration Medical Decision Making Medical Decision Making [facility] Narrative: 32 y.o female w/o significant PMHx who presents to the ED c/o nasal/chest congestion, intermittent sore throat, and chest pain associated with productive cough x1 day. On exam patient NAD, VSS, active coughing during eval. Lungs notable for diffuse expiratory wheezing throughout. Oropharynx is without significant erythema, tonsils without exudates, uvual midline, and pt is handing secretions well. Covid, flu, RSV pending. Concern for viral syndrome vs pneumonia vs bronchitis. Low suspicion for PE or ACS. Plan: Jake Lerma Tessalon pearls, CXR, reassess Please refer to course for remaining clinical decision making, interpretation of labs/imaging results, and discussions with consultants and/or family members. Differential Diagnosis Differential Diagnoses: The differential diagnosis associated with the presentation includes as above Lab Data [facility] Lab Attestation statement: I reviewed the patient's lab results. Labs: Lab Results 09/09/22 Range/Units 12:27 Influenza Type A (PCR) NEGATIVE (Negative) Influenza Type B (PCR) NEGATIVE (Negative) RSV RNA Qual (PCR) NEGATIVE (Negative) SARS-CoV-2 RNA (RT-PCR) NEGATIVE (Negative) Independent Interpretation I performed an independent interpretation of an: Plain X-Ray Radiology Impression Discussion of test interpretation with radiology: I have reviewed the radiologist's reading. External Record Review External record reviewed: Office record, Outpatient record, Prior outpatient labs and Prior outpatient radiology Prescription Management I considered prescription management with: Pain Medication, Antiviral and Antibiotic Discharge Plan Discharge Clinical Impression: Upper respiratory infection, Bronchitis Patient Disposition: Home, Self-Care Instructions: Acute Bronchitis (ED) Additional Instructions: You tested negative for COVID, the flu, and RSV Her x-ray shows some mild thickening however no pneumonia Tessalon Perles for cough take as needed Flonase is a nasal decongestant Prednisone as a steroid please take as prescribed In addition use albuterol inhaler as needed for shortness breath/wheezing Follow-up with her doctor If symptoms persist or worsen return to the ED Prescriptions: New prednisone 20 mg tablet 40 mg PO DAILY 5 Days Qty: 10 0RF benzonatate 100 mg capsule 100 mg PO TID PRN (Reason: cough) Qty: 14 0RF fluticasone propionate [Flonase Allergy Relief] 50 mcg/actuation spray,suspension 2 spray intranasal DAILY Qty: 16 0RF Rx Instructions: administer into each nostril albuterol sulfate 90 mcg/actuation HFA aerosol inhaler 2 puff inhalation Q4-6H PRN (Reason: shortness of breath or wheezing) Qty: 6.7 0RF No Action sulfamethoxazole-trimethoprim [Bactrim DS] 800-160 mg tablet 1 tab PO Q12H 3 Days Qty: 6 0RF nitrofurantoin monohyd/m-cryst [Macrobid] 100 mg capsule 100 mg PO Q12H 5 Days Qty: 10 0RF Rx Instructions: must administer with a meal/food doxycycline hyclate 100 mg capsule 100 mg PO BID 10 Days Qty: 20 0RF cephalexin 500 mg tablet 500 mg PO Q6H 10 Days Qty: 40 0RF Referrals: Ibis Jackson MD [Primary Care Provider] - 5 days Interventions: ED Discharge Assessment Last Done: 09/09/22 15:17 Discharge Date/Time: 09/09/22 15:20
[2022-09-09] MEDS: HYDROcodone/Homat 5/1.5/5 ML 5 ML SYRUP PO (13:17)
[2022-09-09] MEDS: Benzonatate 100 MG CAPSULE PO (13:17)
[2022-09-09] MEDS: Albuterol Sulfate (0.083%) 2.5 MG/3 ML VIAL.NEB 5 MG INHALE (13:17)
[2022-09-09 13:18] VITALS: PULSE 93; RESP 18; O2SAT 98
[2022-09-09 13:21] LABS: Influenza A PCR NEGATIVE (Negative); Influenza B PCR NEGATIVE (Negative); Resp Syncy Virus RNA Qual PCR NEGATIVE (Negative); SARS COV2 PCR INHOUSE NEGATIVE (Negative)
[2022-09-09 15:17] VITALS: BP 134/77; PULSE 106; RESP 16; TEMP 37.1; O2SAT 98
== END 2022-09-09 15:20 | disposition home or self-care (01) ==
PROVIDERS: Emergency Provider Emergency Medicine; PCP Internal Medicine
DX: J06.9 Acute upper respiratory infection, unspecified (principal); J40 Bronchitis, not specified as acute or chronic; Z20.822 Contact with and (suspected) exposure to COVID-19; Z20.828 Contact with and (suspected) exposure to other viral communicable diseases
CPT/HCPCS: 0241U; 71045; 94640; 99284

== ENCOUNTER 2023-01-26 00:02 | Emergency (ER) | payer OTHER, SELFPAY ==
--- NOTE | ~2023-01-26 | CT_ITS ---
EXAMINATION: CT ABDOMEN AND PELVIS WITHOUT CONTRAST CLINICAL INFORMATION: Right lower quadrant pain. COMPARISON: 01/20/2019 TECHNIQUE: Multidetector volumetric imaging was performed from the superior aspect of the liver through the pubic symphysis. Sagittal and coronal reformatted images were obtained on the technologist's workstation. This CT examination was performed using dose optimization techniques as appropriate, variously including the following: *Automated exposure control *Adjustment of mA and/or kV according to patient size (this includes techniques or standardized protocols for targeted exams where dose is matched to indication/reason for exam; i.e. extremities or head) *Use of iterative reconstruction technique DLP: 638 mGy-cm FINDINGS: LUNG BASES: The visualized lung bases are unremarkable. LIVER, GALLBLADDER, AND BILIARY TREE: The liver is normal in size, shape, and attenuation. Small calcification in the left lobe of the liver. No focal hepatic lesion or biliary ductal dilatation is present. The gallbladder is unremarkable with no evidence of radiopaque gallstones, gallbladder wall thickening, or obvious pericholecystic inflammatory changes. PANCREAS: Unremarkable. SPLEEN: Unremarkable. ADRENAL GLANDS: Unremarkable. KIDNEYS AND URETERS: The kidneys are normal in size, shape, and attenuation. No hydronephrosis, hydroureter, or calculi seen. No perinephric stranding. BLADDER: Unremarkable. GASTROINTESTINAL TRACT: The stomach is unremarkable. Normal caliber small bowel. There is no obstruction. Normal appendix. No colonic wall thickening or inflammation. Moderate diffuse colonic stool burden. ABDOMINAL WALL: No significant hernia is appreciated. LYMPH NODES: Normal. VASCULAR: Unremarkable. PELVIC VISCERA: The uterus and adnexa are unremarkable. OSSEOUS STRUCTURES: Unremarkable. CT/CT abdomen pelvis wo IV con IMPRESSION: No acute findings in the abdomen or pelvis. Normal appendix. Moderate colonic stool burden. Fleischner guidelines were followed.
[2023-01-26 00:19] VITALS: BP 128/71; PULSE 67; RESP 17; TEMP 36.4; O2SAT 98; BMI 32.0
[2023-01-26 01:24] LABS: MANUAL DIFF FLAG NO
[2023-01-26 01:28] LABS: Basophils Absolute Auto 0.1 X10*3/uL (0.0-0.2); Basophils Percent Auto 0.6 % (0-2); Eosinophils Absolute Auto 0.5 X10*3/uL (0.0-0.4); Eosinophils Percent Auto 5.9 % (0-4); Hematocrit 42.3 % (37.0-47.0); Hemoglobin 13.9 g/dl (12.0-16.0); Imm Gran Abs Auto 0.01 X10*3/uL (0.00-0.03); Imm Gran Pct Auto 0.1 % (0.0-0.4); Lymphocytes Absolute Auto 2.6 X10*3/uL (1.2-4.9); Lymphocytes Percent Auto 32.3 % (20-40); Mean Corpuscular HGB Conc 32.9 g/dl (31.0-35.0); Mean Corpuscular Hemoglobin 28.7 pg (27.0-33.0); Mean Corpuscular Volume 87.2 fL (80.0-98.0); Mean Platelet Volume 9.4 fL (9.4-12.3); Monocytes Absolute Auto 0.6 X10*3/uL (0.1-1.2); Neutrophils Absolute Auto 4.4 x10*3/uL (2.0-8.3); Neutrophils Percent Auto 54.1 % (45-73); Platelet Count 250 X10*3/uL (160-400); Red Blood Count 4.85 X10*6/uL (4.20-5.50); Red Cell Distribution Width 11.9 % (11.0-16.0); White Blood Count 8.2 X10*3/uL (4.8-10.8)
[2023-01-26 01:29] LABS: Appearance Urine Cloudy; Color Urine Yellow; Glucose Urine UA Negative (Negative); Leukocyte Esterase Urine Small (1+) (Negative); Nitrite Urine Positive (Negative); Specific Gravity - Urine 1.025 (1.005-1.025); UMIC TRIGGER UACC YES; Urine Blood Negative (Negative); Urine Ketones Negative (Negative); Urine Protein Negative (Neg-Trace)
[2023-01-26 01:33] LABS: Bacteria Urine 4+ (None Seen); Hyaline Casts Urine 0-2 /LPF (0-2); RBC Urine 0-2 /HPF (0-2); UACC Culture Trigger YES; WBC Urine 21-50 /HPF (0-5)
[2023-01-26 01:40] LABS: Lipase 18 U/L (8-78)
[2023-01-26 01:41] LABS: Anion Gap 15 (12-20); Blood Urea Nitrogen 14 mg/dL (9-16); Calcium 8.9 mg/dL (8.4-10.2); Carbon Dioxide 21 mmol/L (22-29); Chloride 107 mmol/L (96-108); Creatinine Clr Calc Pharmacy 102.7; Estimated Glomerular Filt Rate > 60; Glucose Random 109 mg/dL (60-115); Potassium 4.1 mmol/L (3.3-5.1); Sodium 139 mmol/L (135-145)
--- NOTE | 2023-01-26 01:44 | ED_ITS ---
HPI - Female Genitourinary General Chief complaint: Urogenital-Female Stated complaint: Kidney infection/ back pain Time Seen by Provider: 01/26/23 01:32 Source: patient Mode of arrival: ambulatory Limitations: no limitations History of Present Illness HPI Narrative: 32-year-old female otherwise healthy came in for evaluation of increased frequency urination with dysuria and urinary urgency for the past 2 days, p atient is prone to UTIs, patient decline fever, chills. Related Data Previous Rx's Medication Instructions Recorded sulfamethoxazole 800 1 tab PO Q12H 3 days #6 tabs 11/07/20 mg-trimethoprim 160 mg tablet (Bactrim DS) nitrofurantoin 100 mg PO Q12H 5 days #10 caps 10/15/21 monohydrate/macrocrystals 100 mg capsule (Macrobid) cephalexin 500 mg tablet 500 mg PO Q6H 10 days #40 tabs 11/21/21 doxycycline hyclate 100 mg capsule 100 mg PO BID 10 days #20 caps 11/21/21 albuterol sulfate 90 mcg/actuation 2 puff inhalation Q4-6H PRN 09/09/22 aerosol inhaler shortness of breath or wheezing #6.7 grams benzonatate 100 mg capsule 100 mg PO TID PRN cough #14 caps 09/09/22 fluticasone propionate 50 2 spray intranasal DAILY #16 grams 09/09/22 mcg/actuation nasal spray,suspension (Flonase Allergy Relief) prednisone 20 mg tablet 40 mg PO DAILY 5 days #10 tabs 09/09/22 cefuroxime axetil 500 mg tablet 500 mg PO BID #20 tabs 01/26/23 Allergies Allergy/AdvReac Type Severity Reaction Status Date / Time No Known Allergies Allergy Verified 01/26/23 00:18 Review of Systems Review of Systems: All other systems are reviewed and are negative Constitutional: Reports as per HPI and Reports no additional constitutional complaints Eyes: Reports as per HPI and Reports no additional eye complaints Reports system reviewed and no additional complaints, except as documented Cardiovascular: Reports as per HPI and Reports no additional cardiovascular complaints Respiratory: Reports as per HPI and Reports no additional respiratory complaints Gastrointestinal: Reports as per HPI and Reports no additional gastrointestinal complaints Genitourinary: Reports no additional female genitourinary complaints Musculoskeletal: Reports no additional musculoskeletal complaints Skin/Breast: Reports system reviewed and no additional complaints, except as docu Psychiatric: Reports no additional psychiatric complaints Endocrine: Reports no additional endocrine complaints Hematologic/Lymphatic: Reports no additional hematologic/lymphatic complaints Allergic/Immunologic: Reports no additional allergic/immunologic complaints Reports system reviewed and no additional complaints, except as documented and Reports Abnormal speech present [facility] Past Medical History Medical History Panic attack Social History Social History Alcohol intake: never Advance Directives: No Advance Directives Information Provided: No Physical Exam Vital Signs: Vital Signs: Last Vital Signs Temp 97.6 F 01/26/23 00:19 Pulse 67 01/26/23 00:19 Resp 17 01/26/23 00:19 BP 128/71 01/26/23 00:19 Pulse Ox 98 01/26/23 00:19 O2 Del Method Room Air 01/26/23 00:19 BMI result Body Mass Index 32.0 Vital signs have been reviewed as appeared to be correct. Blood pressure normal. Heart rate normal. Respiration rate normal. Temperature normal. Oxygen saturation normal. Appearance: Alert. Oriented X3. No acute distress. Head: Normal external exam. Normocephalic. Atraumatic. No Escalante signs noted. No raccoon eyes noted Eyes: PERRLA. EOMI. Conjunctiva and sclera normal. Eyelids normal. ENT: TM's Normal. Pharynx normal. Uvula midline. Moist mucous membranes. No trismus noted. No drooling noted. No muffled voice noted. Neck: Normal inspection. Neck supple. FROM. No adenopathy. Thyroid Normal. No meningeal signs. No neck mass noted. CVS: Normal heart rate and rhythm. Heart sound normal. No murmurs noted. Pulses normal throughout. Respiratory: No respiratory distress. Painless inspiration. Breath sounds normal. No wheezes/rales/rhonchi noted. Chest nontender. No accessory muscle usage noted or decreased air movement noted. Abdomen: Soft, right lower quadrant tenderness, no guarding, no rebound tenderness Bowel sounds normal in all 4 quadrants. No distention noted. No organomegaly noted. No visible injury noted. Back: Right CVA tenderness. Full range of motion noted. Skin: Skin warm and dry. Normal skin color. Normal skin turgor. No rashes/lesions/lacerations noted. Extremities: No lower extremity edema. Extremities exhibit normal range of motion. Extremities nontender. Neuro: Oriented X 3. Cranial nerve exam: II-XII are grossly intact No motor deficit. No sensory deficit. Reflexes normal. Course Course Course Narrative: UTI/right pyelonephritis. Patient was encouraged to drink plenty of fluid and will start the patient on cefuroxime. Medications Administered Discontinued Medications Generic Name Dose Route Start Last Admin Trade Name Freq PRN Reason Stop Dose Admin Cefuroxime Axetil 500 mg 01/26/23 01:42 01/26/23 02:32 Cefuroxime Axetil 500 Mg Tablet PO 01/26/23 01:43 500 mg ONCE ONE Administration Medical Decision Making Differential Diagnosis Differential Diagnoses: The differential diagnosis associated with the presentation includes (Acute appendicitis, right kidney stone, pyelonephritis, colitis, diverticulitis electrolyte abnormalities, severe anemia.) Admission/Observation Consideration of admission/observation: Escalation of care including admission/observation considered Lab Data MDM Lab Attestation statement: I reviewed the patient's lab results. 01/26/23 01:20 01/26/23 01:20 Labs: Lab Results 01/26/23 01/26/23 01/26/23 Range/Units 01:20 01:20 01:20 WBC 8.2 (4.8-10.8) X10*3/uL RBC 4.85 (4.20-5.50) X10*6/uL Hgb 13.9 (12.0-16.0) g/dl Hct 42.3 (37.0-47.0) % MCV 87.2 (80.0-98.0) fL MCH 28.7 (27.0-33.0) pg MCHC 32.9 (31.0-35.0) g/dl RDW 11.9 (11.0-16.0) % Plt Count 250 (160-400) X10*3/uL MPV 9.4 (9.4-12.3) fL Immature Gran % (Auto) 0.1 (0.0-0.4) % Neut % (Auto) 54.1 (45-73) % Lymph % (Auto) 32.3 (20-40) % Kings % (Auto) 7.0 (2-11) % Eos % (Auto) 5.9 H (0-4) % Baso % (Auto) 0.6 (0-2) % Lymph # (Auto) 2.6 (1.2-4.9) X10*3/uL Kings # (Auto) 0.6 (0.1-1.2) X10*3/uL Eos # (Auto) 0.5 H (0.0-0.4) X10*3/uL Baso # (Auto) 0.1 (0.0-0.2) X10*3/uL Abs Immat Gran (auto) 0.01 (0.00-0.03) X10*3/uL Absolute Neuts (auto) 4.4 (2.0-8.3) x10*3/uL Absolute Nucleated RBC 0.000 (0.0-0.012) X10*3/uL Nucleated RBC % (auto) 0.0 (0.0-0.2) /100WBC Sodium 139 (135-145) mmol/L Potassium 4.1 (3.3-5.1) mmol/L Chloride 107 (96-108) mmol/L Carbon Dioxide 21 L (22-29) mmol/L Anion Gap 15 (12-20) BUN 14 (9-16) mg/dL Creatinine 0.76 (0.5-1.4) mg/dL Estim Creat Clear Calc 102.7 Estimated GFR > 60 Random Glucose 109 (60-115) mg/dL Calcium 8.9 (8.4-10.2) mg/dL Lipase 18 (8-78) U/L Urine Color Urine Appearance Urine pH (5.0-9.0) Ur Specific [place] (1.005-1.025) Urine Protein (Neg-Trace) mg/dL Urine Glucose (UA) (Negative) mg/dL Urine Ketones (Negative) mg/dL Urine Blood (Negative) Urine Nitrite (Negative) Ur Leukocyte Esterase (Negative) Urine RBC (0-2) /HPF Urine WBC (0-5) /HPF Ur Squamous Epith Cells (0-2) /HPF Urine Bacteria (None Seen) Hyaline Casts (0-2) /LPF Urine Test (NEGATIVE) 01/26/23 01/26/23 Range/Units 01:20 01:20 WBC (4.8-10.8) X10*3/uL RBC (4.20-5.50) X10*6/uL Hgb (12.0-16.0) g/dl Hct (37.0-47.0) % MCV (80.0-98.0) fL MCH (27.0-33.0) pg MCHC (31.0-35.0) g/dl RDW (11.0-16.0) % Plt Count (160-400) X10*3/uL MPV (9.4-12.3) fL Immature Gran % (Auto) (0.0-0.4) % Neut % (Auto) (45-73) % Lymph % (Auto) (20-40) % Kings % (Auto) (2-11) % Eos % (Auto) (0-4) % Baso % (Auto) (0-2) % Lymph # (Auto) (1.2-4.9) X10*3/uL Kings # (Auto) (0.1-1.2) X10*3/uL Eos # (Auto) (0.0-0.4) X10*3/uL Baso # (Auto) (0.0-0.2) X10*3/uL Abs Immat Gran (auto) (0.00-0.03) X10*3/uL Absolute Neuts (auto) (2.0-8.3) x10*3/uL Absolute Nucleated RBC (0.0-0.012) X10*3/uL Nucleated RBC % (auto) (0.0-0.2) /100WBC Sodium (135-145) mmol/L Potassium (3.3-5.1) mmol/L Chloride (96-108) mmol/L Carbon Dioxide (22-29) mmol/L Anion Gap (12-20) BUN (9-16) mg/dL Creatinine (0.5-1.4) mg/dL Estim Creat Clear Calc Estimated GFR Random Glucose (60-115) mg/dL Calcium (8.4-10.2) mg/dL Lipase (8-78) U/L Urine Color Yellow Urine Appearance Cloudy Urine pH 7.0 (5.0-9.0) Ur Specific [place] 1.025 (1.005-1.025) Urine Protein Negative (Neg-Trace) mg/dL Urine Glucose (UA) Negative (Negative) mg/dL Urine Ketones Negative (Negative) mg/dL Urine Blood Negative (Negative) Urine Nitrite Positive H (Negative) Ur Leukocyte Esterase Small (1+) H (Negative) Urine RBC 0-2 (0-2) /HPF Urine WBC 21-50 H (0-5) /HPF Ur Squamous Epith Cells 11-20 (0-2) /HPF Urine Bacteria 4+ (None Seen) Hyaline Casts 0-2 (0-2) /LPF Urine Test NEGATIVE (NEGATIVE) Independent Interpretation I performed an independent interpretation of an: CT Scan (Abdomen and pelvis: No acute intra-abdominal pathology.) Radiology Impression Discussion of test interpretation with radiology: I have reviewed the radiologist's reading. Discharge Plan Discharge Clinical Impression: Urinary tract infection Patient Disposition: Home, Self-Care Instructions: Urinary Tract Infection in Women (DC) Prescriptions: New cefuroxime axetil 500 mg tablet 500 mg PO BID Qty: 20 0RF No Action sulfamethoxazole-trimethoprim [Bactrim DS] 800-160 mg tablet 1 tab PO Q12H 3 Days Qty: 6 0RF nitrofurantoin monohyd/m-cryst [Macrobid] 100 mg capsule 100 mg PO Q12H 5 Days Qty: 10 0RF Rx Instructions: must administer with a meal/food doxycycline hyclate 100 mg capsule 100 mg PO BID 10 Days Qty: 20 0RF cephalexin 500 mg tablet 500 mg PO Q6H 10 Days Qty: 40 0RF prednisone 20 mg tablet 40 mg PO DAILY 5 Days Qty: 10 0RF benzonatate 100 mg capsule 100 mg PO TID PRN (Reason: cough) Qty: 14 0RF fluticasone propionate [Flonase Allergy Relief] 50 mcg/actuation spray,suspension 2 spray intranasal DAILY Qty: 16 0RF Rx Instructions: administer into each nostril albuterol sulfate 90 mcg/actuation HFA aerosol inhaler 2 puff inhalation Q4-6H PRN (Reason: shortness of breath or wheezing) Qty: 6.7 0RF Referrals: Ibis Jackson MD [Primary Care Provider] -
[2023-01-26 02:16] LABS: UPreg QC Valid YES; Urine Pregnancy NEGATIVE (NEGATIVE)
== END 2023-01-26 04:00 | disposition home or self-care (01) ==
PROVIDERS: Emergency Provider Emergency Medicine; PCP Internal Medicine
DX: N39.0 Urinary tract infection, site not specified (principal); M54.50 Low back pain, unspecified; Z79.899 Other long term (current) drug therapy
CPT/HCPCS: 36415; 74176; 80048; 81001; 81025; 83690; 85025; 87086; 87088; 87186; 99282; 99284

== ENCOUNTER 2025-01-12 06:28 | Emergency (ER) | payer OTHER, SELFPAY ==
[2025-01-12 06:48] VITALS: PULSE 78; RESP 16; TEMP 37.6; O2SAT 97; BMI 31.1
--- NOTE | 2025-01-12 07:08 | ED_ITS ---
HPI - URI/Sore Throat General Chief Complaint: Fever Stated Complaint: sore throat, headache Time Seen by Provider: 01/12/25 07:02 Source: patient and old records reviewed Mode of arrival: ambulatory Limitations: no limitations History of Present Illness ED Provider: JONATAN LANE Narrative: 34 yo female with PMH of anxiety here with c/o 1 day of fevers/chills, sore throat - no travel or sick contacts. She states she took motrin yesterday AM. She can swallow her saliva. MD elicited complaint: fever and sore throat Onset (ago): day(s) (1) Consistency: progressively worsening Severity: moderate Description of mucous: clear Able to tolerate fluids by mouth: Yes Exacerbating factors: swallowing Relieving factors: nothing Associated symptoms: fever, chills, voice changes, headache and sore throat Treatments prior to arrival: none Related Data Previous Rx's ?Medication ?Instructions ?Recorded sulfamethoxazole 800 1 tab PO Q12H 3 days #6 tabs 11/07/20 mg-trimethoprim 160 mg tablet (Bactrim DS) nitrofurantoin 100 mg PO Q12H 5 days #10 ca ps 10/15/21 monohydrate/macrocrystals 100 mg capsule (Macrobid) cephalexin 500 mg tablet 500 mg PO Q6H 10 days #40 ta bs 11/21/21 doxycycline hyclate 100 mg capsule 100 mg PO BID 10 da ys #20 caps 11/21/21 albuterol sulfate 90 mcg/actuation 2 puff inhalation Q 4-6H PRN 09/09/22 aerosol inhaler shortness of breath or wheez ing #6.7 grams benzonatate 100 mg capsule 100 mg PO TID PRN cough #14 caps 09/09/22 fluticasone propionate 50 2 spray intranasal DAILY #16 grams 09/09/22 mcg/actuation nasal spray,suspension (Flonase Allergy Relief) prednisone 20 mg tablet 40 mg (2 x 20 mg) PO DAILY 5 days 09/09/22 #10 tabs cefuroxime axetil 500 mg tablet 500 mg PO BID #20 tabs 01/26/23 amoxicillin 500 mg capsule 500 mg PO BID 10 days #20 c aps 01/12/25 Allergies Allergy/AdvReac Type Severity Reaction Status Date / Time No Known Allergies Allergy Verified 01/12/25 06:50 Review of Systems 2 Review of Systems: Constitutional : pos Fever, pos Chills, No Fatigue ENT/Mouth : pos sore throat, No Rhinorrhea, pos ear pain Eyes: No Eye Pain, No Swelling, No Redness Cardiovascular : No Chest Pain, No SOB, No Dyspnea on Exertion Respiratory : No Cough, No Sputum Gastrointestinal : No Nausea, No Vomiting, No Diarrhea, No abdominal Pain Genitourinary : No Dysuria, No Urinary Frequency, No Hematuria, Musculoskeletal : No joint pain, No Myalgias, No Joint Swelling Skin : No Skin Lesions, No rash Neuro : No Weakness, No Numbness, No Dizziness, positive Headache All other systems reviewed and are negative [facility] Past Medical History Attestation statement: The following information was validated with the patient. Source: old records reviewed Medical History Panic attack Social History Social History Alcohol intake: never Advance Directives: No Advance Directives Information Provided: No Do you have a plan to hurt others: No Plan Physical Exam 2 Vital Signs: Vital Signs: Last Vital Signs Temp 99.7 F 01/12/25 06:48 Pulse 78 01/12/25 06:48 Resp 16 01/12/25 06:48 Pulse Ox 97 01/12/25 06:48 BMI result Body Mass Index 31.1 Appearance: Alert. Oriented X3. No acute distress. Eyes: Pupils equal, round and reactive to light. ENT: Pharynx with moderate generalized erythema/petechia/ uvula is midline, no stridor no drooling Neck: Normal inspection. Neck supple. CVS: Normal heart rate and rhythm. Pulses normal. Respiratory: No respiratory distress. Breath sounds normal. Abdomen: Soft and nontender. Skin: Skin warm and dry. Normal skin color. Extremities: No lower extremity edema. Neuro: Oriented X 3. No motor deficit. No sensory deficit. CN2-12 intact Medications Administered Discontinued Medications Generic Name Dose Route Start Last Admin Trade Name Freq PRN Reason Stop Dose Admin Amoxicillin 500 mg 01/12/25 07:27 01/12/25 07:32 Amoxicillin 500 Mg Capsule PO 01/12/25 07:28 500 mg ONCE ONE Administration Dexamethasone Sodium Phosphate 8 mg 01/12/25 07:23 01/12/25 07:32 Dexamethasone Sod Phosphate 4 Mg/Ml Vial PO 01/12/25 07:24 8 mg ONCE ONE Administration Ibuprofen 600 mg 01/12/25 07:23 01/12/25 07:32 Ibuprofen Oral Susp 200 Mg/10 Ml Oral.Susp PO 01/12/25 07:24 600 mg ONCE ONE Administration Medical Decision Making Medical Decision Making [facility] Narrative: 34 yo female with sore throat, fevers/chills. Exam concernin for GAS pharyngitis she has no stridor, tolerating secretions normal ROM and no signs of [employer]END[employer] On exam. At this time will obtain swabs, supportive medications. If strep positive will start on amoxicillin - given dose of ibuprofen and dexamethasone. Differential Diagnosis Differential Diagnoses: The differential diagnosis associated with the presentation includes viral syndrome, strep throat Admission/Observation Consideration of admission/observation: Escalation of care including admission/observation considered no toxic no signs of K[employer]END[employer] / abscess can be managed with oral abx Lab Data [facility] Lab Attestation statement: I reviewed the patient's lab results. 01/12/25 07:08 01/12/25 07:08 Labs: Lab Results 01/12/25 Range/Units 07:08 WBC 11.0 H (4.8-10.8) X10*3/uL RBC 4.35 (4.20-5.50) X10*6/uL Hgb 11.8 L (12.0-16.0) g/dl Hct 37.4 (37.0-47.0) % MCV 86.0 (80.0-98.0) fL MCH 27.1 (27.0-33.0) pg MCHC 31.6 (31.0-35.0) g/dl RDW 13.3 (11.0-16.0) % Plt Count 235 (160-400) X10*3/uL MPV 9.6 (9.4-12.3) fL Immature Gran % (Auto) 0.5 H (0.0-0.4) % Neut % (Auto) 78.4 H (45-73) % Lymph % (Auto) 11.5 L (20-40) % [place] % (Auto) 8.7 (2-11) % Eos % (Auto) 0.5 (0-4) % Baso % (Auto) 0.4 (0-2) % Lymph # (Auto) 1.3 (1.2-4.9) X10*3/uL [place] # (Auto) 1.0 (0.1-1.2) X10*3/uL Eos # (Auto) 0.1 (0.0-0.4) X10*3/uL Baso # (Auto) 0.0 (0.0-0.2) X10*3/uL Abs Immat Gran (auto) 0.05 H (0.00-0.03) X10*3/uL Absolute Neuts (auto) 8.7 H (2.0-8.3) x10*3/uL Absolute Nucleated RBC 0.000 (0.0-0.012) X10*3/uL Nucleated RBC % (auto) 0.0 (0.0-0.2) /100WBC Sodium 141 (135-145) mmol/L Potassium 3.8 (3.3-5.1) mmol/L Chloride 109 H (96-108) mmol/L Carbon Dioxide 25 (22-29) mmol/L Anion Gap 11 L (12-20) BUN 10 (9-16) mg/dL Creatinine 0.90 (0.5-1.4) mg/dL Estim Creat Clear Calc 83.9 Estimated GFR > 60 Random Glucose 97 (60-115) mg/dL Calcium 8.4 (8.4-10.2) mg/dL Total Bilirubin 0.3 (0.0-1.0) mg/dL AST 20 (5-31) U/L ALT 16 (0-31) U/L Alkaline Phosphatase 57 (39-117) U/L Total Protein 6.9 (6.5-8.0) g/dL Albumin 3.8 (3.5-5.0) g/dL Influenza Type A (PCR) NEGATIVE (Negative) Influenza Type B (PCR) NEGATIVE (Negative) RSV RNA Qual (PCR) NEGATIVE (Negative) SARS-CoV-2 RNA (RT-PCR) NEGATIVE (Negative) S. pyogenes GrpA EYAL Positive A (Negative) External Record Review External record reviewed: Outpatient record Prescription Management I considered prescription management with: Antibiotic Discharge Plan Discharge Clinical Impression: Strep throat Patient Disposition: Home, Self-Care Instructions: Strep Throat (ED) Additional Instructions: negative for covid, flu, rsv + strep throat return for worsening symptoms or concerns throw away toothbrush in 24 hours finish all antibiotics On amoxicillin, softer bowel movements are to be expected. Call your provider if you move your bowels more than 4 times a day, your bowel movements are almost all liquid, or you get a rash.? Prescriptions: New amoxicillin 500 mg capsule 500 mg PO BID 10 Days Qty: 20 0RF No Action sulfamethoxazole-trimethoprim [Bactrim DS] 800-160 mg tablet 1 tab PO Q12H 3 Days Qty: 6 0RF nitrofurantoin monohyd/m-cryst [Macrobid] 100 mg capsule 100 mg PO Q12H 5 Days Qty: 10 0RF Rx Instructions: must administer with a meal/food doxycycline hyclate 100 mg capsule 100 mg PO BID 10 Days Qty: 20 0RF cephalexin 500 mg tablet 500 mg PO Q6H 10 Days Qty: 40 0RF prednisone 20 mg tablet 40 mg PO DAILY 5 Days Qty: 10 0RF benzonatate 100 mg capsule 100 mg PO TID PRN (Reason: cough) Qty: 14 0RF fluticasone propionate [Flonase Allergy Relief] 50 mcg/actuation spray,suspension 2 spray intranasal DAILY Qty: 16 0RF Rx Instructions: administer into each nostril albuterol sulfate 90 mcg/actuation HFA aerosol inhaler 2 puff inhalation Q4-6H PRN (Reason: shortness of breath or wheezing) Qty: 6.7 0RF cefuroxime axetil 500 mg tablet 500 mg PO BID Qty: 20 0RF Stand Alone Forms: Work/School Release Print Language: Moldovan
[2025-01-12 07:14] LABS: MANUAL DIFF FLAG NO
[2025-01-12 07:26] LABS: Hematocrit 37.4 % (37.0-47.0); Hemoglobin 11.8 g/dl (12.0-16.0); IDNOW Serial# 55D5AD1C; Imm Gran Abs Auto 0.05 X10*3/uL (0.00-0.03); Imm Gran Pct Auto 0.5 % (0.0-0.4); Lymphocytes Absolute Auto 1.3 X10*3/uL (1.2-4.9); Mean Corpuscular HGB Conc 31.6 g/dl (31.0-35.0); Mean Corpuscular Hemoglobin 27.1 pg (27.0-33.0); Mean Corpuscular Volume 86.0 fL (80.0-98.0); NRBC Abs Auto 0.000 X10*3/uL (0.0-0.012); NRBC Pct Auto 0.0 /100WBC (0.0-0.2); Platelet Count 235 X10*3/uL (160-400); Red Blood Count 4.35 X10*6/uL (4.20-5.50); Strep A Nucleic Acid Positive (Negative); White Blood Count 11.0 X10*3/uL (4.8-10.8)
--- OUTSIDE RECORDS SUMMARY | 2025-01-12 07:26 | XMS_ITS | Clinical Summary ---
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 Name Role Phone Ibis Jackson MD Primary Care Provider [phone] Allergies No known active allergies Medications nystatin-triamc inolone (MYCOLOG II) ointment 3-4x/day to affected area 15 g 09/24/2024 Active Ventolin HFA 90 mcg/actuation inhaler TAKE 2 PUFFS (INHALATION) EVERY 6 HOURS (SHORTNESS OF BREATH OR WHEEZING) FOR 10 DAYS 06/17/2024 Active Active Problems Problem Noted Date Diagnosed Date Atypical squamous cells jm ot exclude high grade squamous intraepithelial lesion on cytologic smear of cervix (ASC-H) 02/07/2022 Overview (07/03/2024): 04/05/22 Colpo negative Repeat pap 1 year Subclinical hyperthyroidism 08/21/2019 Anxiety 10/31/2018 Constipation 10/31/2018 Obesity (BMI 30.0-34.9) 10/31/2018 Panic attack 10/31/2018 Encounters Date Type Department Care Team Description 12/22/2024 9:00 AM EDT Office Visit Adult Medicine [address] [phone] Luisa Parsons PA Annual physical exam (Primary Dx); Lipid screening; Subclinical hyperthyroidism; Family history of ovarian cancer from Last 3 Months Immunizations Name Administration Dates Next Due HPV 9-valent (Gardisil) 9yo to less than 46yo ,04/04/2022 Influenza Quadravalent, MDCK , 0.5ml, preservative free (Flucelvax) 6mo and older 08/12/2020 PPD Test 07/28/2020 Pfizer (ages 12 & older) SHARLENE S-CoV-2 COVID-19, mRNA, LNP-S, mer-sucrose, preservative free 08/15/2021 Pfizer SARS-CoV-2 COVID-19, mRNA, LNP-S, preservative free 08/15/2021 Td Tetanus diptheria (Tdvax) 7yo and older 08/12 Tdap Tetanus diptheria acell ular pertussis (Boostrix; Adacel) 7yo and older 06/12/2022,01/30/2022 Surgical History Surgery Date Site/Laterality Comments NASAL POLYP EXCISION 07/02/2016 - 07/01/2017 EXCISION NASAL POLYP SIMPLE; COMMENT: Dr. Duncan TUBAL LIGATION 07/02/2009 - 07/01/2010 PROCEDURE: HISTORICAL TUBAL LIGATION BELT ABDOMINOPLASTY 09/20/2021 HISTORICAL TUMMY TUCK; COMMENT: [place] [facility] 10/01/2023 - 10/30/2023 COMMENT: [facility] in [place] Medical History Medical History Date Comments Anxiety state DX:Anxiety state Atypical squamous cells jm ot exclude high grade squamous intraepithelial lesion on cytologic smear of cervix (ASC-H) 02/07/2022 DX:Atypical squamous cells c annot exclude high grade squamous intraepithelial lesion on cytologic smear of cervix (ASC-H) Family History Medical History Relation Name Comments Hypertension Father Ovarian cancer Half-Sister x 2 Ovarian cancer Maternal Cousin age? - pos sibly in her 30s, now in her 50s Lung cancer Mother +smoker; diabet es, brain aneursym w/ rupture (in coma for 6 months), Alzheimer's age 64 bladder cancer Mother's Brother ?DX - th e cancer when you pee, its blood Lung cancer Mother's Sister +smoker Stroke Paternal Grandmother Alzheim er's Relation Name Status Comments Father Alive Half-Brother x 7 Alive Half-Sister x 2 Alive Maternal Cousin Alive Maternal Grandfather unknown Other Maternal Grandmother unknown Other Mother Mother's Brother Mother's Sister Alive Paternal Grandfather unknown Paternal Grandmother Social History Tobacco Use Types Packs/Day Years Used Date Smoking Tobacco: Never Smokeless Tobacco: Never Tobacco Cessation:Counseling Given: Not Answered Alcohol Use Standard Drinks/Week Comments Not Currently 0 (1 standard drink = 0.6 oz pur e alcohol) Housing Instability Answer Date Recorde d Are you worried that in the next 2 months you may not have stable housing? No 12/22/2024 Food Access & Nutrition Answer Date Rec orded Do you have access to a vari ety of food including fruits and vegetables? Yes 12/22/2024 Access to Healthcare Answer Date Record ed Within the last 3 months, ho w many times did you visit the emergency department for your medical care? 0 12/22/2024 Health Literacy Answer Date Recorded How often do you need to hav e someone help you when you read instructions, pamphlets, or other written material from your doctor or pharmacy? Never 12/22/2024 Caregiver: How often do you need to have someone help you when you read instructions, pamphlets, or other written material from your doctor or pharmacy? Not on file 12/22/2024 Financial Risk Answer Date Recorded How hard is it for you to pa y for the very basics like food, housing, medical care, and air conditioning / heating? Not very hard 12/22/2024 Transportation Answer Date Recorded Has the lack of transportati on kept you from meetings, work, or from getting things needed for daily living? No Has the lack of transportati on kept you from medical appointments or from getting medications? No 12/22/2024 Social Isolation Answer Date Recorded How often do you feel lonely or isolated from those around you? Sometimes 12/22/2024 Food Risk Answer Date Recorded Within the past 12 months we worried whether our food would run out before we got money to buy more. Never true 12/22/2024 Within the past 12 months th e food we bought just didn't last and we didn't have money to get more. Never true 12/22/2024 Dependent Care Answer Date Recorded Do you need help finding or paying for care for your loved ones. For example, child health associate or elderly care for an older adult? No 12/22/2024 Education Answer Date Recorded Do you think completing more education or training, like finishing a GED, going to college, or learning a trade, would be helpful for you? No 12/22/2024 Employment and Income Answer Date Recor ded During the last four weeks, have you been actively looking for work? No 12/22/2024 Living Situation Answer Date Recorded What is your living situation? 0 12/22/2024 Comments No Sex and Gender Information Value Date Recorded Sex Assigned at Not on file Legal Sex Female 4:37 AM EST Gender Identity Not on file Sexual Orientation Not on file Obstetrics History Para Term AB IAB SAB Ectopic Multiple Livin g Live Births 3 0 0 0 Date Outcome GA Total Labor Labor/2nd/3rd Weight Sex Type Anes PTL Emilia A1 A5 Name Clin Last Filed Vital Signs Vital Sign Reading Time Taken Comments Blood Pressure 100/68 12/22/2024 8:51 AM EDT Pulse 63 12/22/2024 8:51 AM EDT Temperature 36.3 C (97.4 F) 12/22/2024 8:51 AM EDT Respiratory Rate 14 12/22/2024 8:51 AM EDT Oxygen Saturation 97% 12/22/2024 8:51 AM EDT Inhaled Oxygen Concentration - - Weight 79.8 kg (176 lb) 12/22/2024 8:51 AM EDT Height 157.5 cm (5' 2 ) 12/22/2024 8:51 AM EDT Body Mass Index 32.19 12/22/2024 8:51 AM EDT Plan of Treatment Upcoming Encounters Date Type Department Care Team (Late st Contact Info) Description 12/29/2025 9:00 AM EDT Office Visit Adult Medicine [facility] [address] [place] [phone] Ibis Jackson MD [address] [place] [address] Health Maintenance Due Date Last Done Comments Hepatitis B Vaccines (1 of 3 - 19+ 3-dose series) 2008 Hepatitis C Screening 06/10/2022 HPV Vaccines (3 - 3-dose SCDM series) 10/03/2022 06/05/2022, 04/04/2022 COVID-19 Vaccine ( season) 2024 08/15/2021, 08/15/2021, 10/25/2020, Additional history exists Influenza Vaccine (#1) 2025 08/12/2020 Depression Screening 12/22/2025 12/22/2024 Social Influencers of Health Screening 12/22/2025 12/22/2024 Cervical Cancer Screening: HPV 04/04/2027 04/04/2022 Cholesterol Screening (Lipid Panel) 12/22/2029 12/22/2024, 09/17/2023 DTaP,Tdap,and Td Vaccines (4 - Td or Tdap) 06/12/2032 06/12/2022, 01/30/2022, 08/12/2020 HIV Screening Completed 09/17/2023 HIB Vaccines Aged Out No longer eligi ble based on patient's age to complete this topic Hepatitis A Vaccines Aged Out No long er eligible based on patient's age to complete this topic IPV Vaccines Aged Out No longer eligi ble based on patient's age to complete this topic MMR Vaccines Aged Out No longer eligi ble based on patient's age to complete this topic Meningococcal ACWY Vaccine Aged Out N o longer eligible based on patient's age to complete this topic Meningococcal B Vaccine Aged Out No l onger eligible based on patient's age to complete this topic Pneumococcal Vaccine: Pediatrics (0 to 5 Years) and At-Risk Patients (6 to 49 Years) Aged Out No longer eligible based on patient's age to complete this topic RSV Immunization Patients Under 20 months Aged Out No longer eligible based on patient's age to complete this topic Varicella Vaccines Aged Out No longer eligible based on patient's age to complete this topic Procedures Procedure Name Priority Date/Time Associated Diagnosis Comments INTERFERON GAMMA INTERPRETATION Routine 12/22/2024 9:44 AM EDT Screening-pulmonary TB INTERFERON GAMMA ANTIGEN 2 Routine 12/22/2024 9:44 AM EDT Screening-pulmonary TB INTERFERON GAMMA ANTIGEN 1 Routine 12/22/2024 9:44 AM EDT Screening-pulmonary TB INTERFERON GAMMA MITOGEN Routine 12/22/2024 9:44 AM EDT Screening-pulmonary TB INTERFERON GAMMA NIL Routine 12/22/2024 9:44 AM EDT Screening-pulmonary TB CBC WITH AUTO DIFFERENTIAL Routine 12/22/2024 9:44 AM EDT Annual physical exam INTERFERON GAMMA FOR TB, QUALITATIVE Routine 12/22/2024 9:44 AM EDT Screening-pulmonary TB LIPID PANEL WITH REFLEX TO DIRECT LDL Routine 12/22/2024 9:44 AM EDT Lipid screening COMPREHENSIVE METABOLIC PANEL Routine 12/22/2024 9:44 AM EDT Annual physical exam CBC AND DIFFERENTIAL Routine 12/22/2024 9:44 AM EDT Annual physical exam THYROID STIMULATING HORMONE Routine 12/22/2024 9:44 AM EDT Subclinical hyperthyroidism HIV SCREENING Routine 09/17/2023 HPV Routine 04/04/2022 from Last 3 Months or Most Recently Relevant to Health Maintenance Results * Interferon gamma interpretation (12/22/2024 9:44 AM EDT) [facility] Quantiferon Plus Interpretation Negative Negative LAB CHEMISTRY METHOD 12/23/2024 10:24 AM EDT [facility] Blood Venous blood specimen / Unknown Venipuncture / Unknown 12/22/2024 9:44 AM EDT 12/22/2024 9:44 AM EDT us Luisa VALADEZ LAB BLOOD ORDERABLES Final Re sult [facility]) [facility] [address] [place] [address], * Interferon gamma antigen 2 (12/22/2024 9:44 AM EDT) Blood Venous blood specimen / Unknown Venipuncture / Unknown 12/22/2024 9:44 AM EDT 12/22/2024 9:44 AM EDT us Luisa VALADEZ LAB BLOOD ORDERABLES Final Re sult Performing Organization Address [facility]/ZIP Co de Phone Number [facility] [address] [place] [address], [place] [phone] * Interferon gamma antigen 1 (12/22/2024 9:44 AM EDT) Blood Venous blood specimen / Unknown Venipuncture / Unknown 12/22/2024 9:44 AM EDT 12/22/2024 9:44 AM EDT us Luisa VALADEZ LAB BLOOD ORDERABLES Final Re sult Performing Organization Address [facility] Co de Phone Number [facility] [address] [place] [address], [place] [phone] * Interferon gamma mitogen (12/22/2024 9:44 AM EDT) Blood Venous blood specimen / Unknown Venipuncture / Unknown 12/22/2024 9:44 AM EDT 12/22/2024 9:44 AM EDT us Luisa VALADEZ LAB BLOOD ORDERABLES Final Re sult Performing Organization Address [facility] Co de Phone Number [facility] [address] [place] [address], [place] [phone] * Interferon gamma NIL (12/22/2024 9:44 AM EDT) Blood Venous blood specimen / Unknown Venipuncture / Unknown 12/22/2024 9:44 AM EDT 12/22/2024 9:44 AM EDT us Luisa VALADEZ LAB BLOOD ORDERABLES Final Re sult Performing Organization Address [facility] Co de Phone Number [facility] [address] [place] [address], [place] [phone] * Lipid panel with reflex to direct LDL (12/22/2024 9:44 AM EDT) Pathologist [facility] Cholesterol 126 0 - 200 mg/dL LAB CHEMISTRY METHOD 12/22/2024 7:55 PM EDT [facility] Triglycerides 75 0 - 150 mg/dL LAB CHEMISTRY METHOD 12/22/2024 7:55 PM EDT [facility] HDL 55 >=40 mg/dL LAB CHEMISTRY METHOD 12/22/2024 7:55 PM EDT [facility] LDL Calculated 56 0 - 100 mg/dL LAB CHEMISTRY METHOD 12/22/2024 7:55 PM EDT [facility] VLDL Cholesterol Ky 15 mg/dL LAB CHEMISTRY METHOD 12/22/2024 7:55 PM EDT [facility] Non HDL Chol. (LDL+VLDL) 71 <145 mg/dL LAB CHEMISTRY METHOD 12/22/2024 7:55 PM EDT [facility] Chol/HDL Ratio 2.3 0.0 - 4.4 LAB CHEMISTRY METHOD 12/22/2024 7:55 PM EDT [facility] Blood Venous blood specimen / Unknown Venipuncture / Unknown 12/22/2024 9:44 AM EDT 12/22/2024 9:44 AM EDT us Luisa VALADEZ LAB BLOOD ORDERABLES Final Re sult [facility] [address] [place] [address], * (ABNORMAL) CBC auto differential (12/22/2024 9:44 AM EDT) [facility] WBC 6.9 4.8 - 10.8 K/mcL LAB HEMETOLOGY METHOD 12/22/2024 12:22 PM T [facility] RBC 4.70 3.80 - 4.80 M/mcL LAB HEMETOLOGY METHOD 12/22/2024 12:22 PM T [facility] Hemoglobin 13.1 11.5 - 16.0 g/dL LAB HEMETOLOGY METHOD 12/22/2024 12:22 PM [facility] Hematocrit 42.0 35.0 - 47.0 % LAB HEMETOLOGY METHOD 12/22/2024 12:22 PM [facility] MCV 89.7 79.0 - 98.0 FL LAB HEMETOLOGY METHOD 12/22/2024 12:22 PM [facility] MCH 28.0 27.0 - 32.0 pcg LAB HEMETOLOGY METHOD 12/22/2024 12:22 PM [facility] MCHC 31.2(L) 32.0 - 37.0 g/dL LAB HEMETOLOGY METHOD 12/22/2024 12:22 PM [facility] RDW 13.1 11.0 - 15.0 % LAB HEMETOLOGY METHOD 12/22/2024 12:22 PM [facility] Platelets 282 130 - 400 K/mcL LAB HEMETOLOGY METHOD 12/22/2024 12:22 PM [facility] MPV 10.7 7.0 - 11.0 FL LAB HEMETOLOGY METHOD 12/22/2024 12:22 PM [facility] NRBC 0.0 <1.0 % LAB HEMETOLOGY METHOD 12/22/2024 12:22 PM [facility] NRBC Absolute 0.00 <0.10 K/mcL LAB HEMETOLOGY METHOD 12/22/2024 12:22 PM [facility] Neutrophils Relative 58.6 % LAB HEMETOLOGY METHOD 12/22/2024 12:22 PM [facility] Lymphocytes Relative 27.6 % LAB HEMETOLOGY METHOD 12/22/2024 12:22 PM [facility] Monocytes Relative 6.6 % LAB HEMETOLOGY METHOD 12/22/2024 12:22 PM EDT [facility] Eosinophils Relative 6.2 % LAB HEMETOLOGY METHOD 12/22/2024 12:22 PM EDT [facility] Basophils Relative 0.9 % LAB [facility]OLOGY [facility] Immature Granulocytes Relative 0.1 % LAB HEMETOLOGY METHOD 12/22/2024 12:22 PM EDT [facility] Neutrophils Absolute 4.06 1.50 - 7.00 K/mcL LAB HEMETOLOGY METHOD 12/22/2024 12:22 PM EDT [facility] Lymphocytes Absolute 1.91 1.00 - 5.00 K/mcL LAB HEMETOLOGY METHOD [facility]/22[facility]24 [facility] Monocytes Absolute 0.46 0.20 - 1.00 K/mcL LAB HEMETOLOGY METHOD 12/22/2024 12:22 PM EDT [facility] Eosinophils Absolute 0.43 0.00 - 0.50 K/mcL LAB HEMETOLOGY METHOD 12/22/2024 12:22 PM EDT [facility] Basophils Absolute 0.06 0.00 - 0.20 K/mcL LAB HEMETOLOGY METHOD 12/22/2024 12:22 PM T [facility] Immature Granulocytes Absolute 0.01 0.00 - 0.03 K/mcL LAB HEMETOLOGY METHOD 12/22/2024 12:22 PM EDT [facility] Blood Venous blood specimen / Unknown Venipuncture / Unknown 12/22/2024 9:44 AM EDT 12/22/2024 9:44 AM EDT us Luisa VALADEZ LAB BLOOD ORDERABLES Final Re sult [facility] [address] [place] [address], * Thyroid stimulating hormone (12/22/2024 9:44 AM EDT) TSH 0.76 0.40 - 4.00 mcIU/mL LAB CHEMISTRY METHOD 12/22/2024 8:24 PM [facility] Blood Venous blood specimen / Unknown Venipuncture / Unknown 12/22/2024 9:44 AM EDT 12/22/2024 9:44 AM EDT us Luisa VALADEZ LAB BLOOD ORDERABLES Final Re sult [facility] [address] [place] [address], * Comprehensive metabolic panel (12/22/2024 9:44 AM EDT) Pathologist [facility] Sodium 140 133 - 145 mmol/L LAB CHEMISTRY METHOD 12/22/2024 7:55 PM [facility] Potassium 5.2 3.5 - 5.5 mmol/L LAB CHEMISTRY METHOD 12/22/2024 7:55 PM [facility] Chloride 110 96 - 110 mmol/L LAB CHEMISTRY METHOD 12/22/2024 7:55 PM [facility] CO2 27 21 - 32 mmol/L LAB CHEMISTRY METHOD 12/22/2024 7:55 PM [facility] Anion Gap 3 3 - 11 LAB CHEMISTRY METHOD 12/22/2024 7:55 PM [facility] Glucose 87 70 - 100 mg/dL LAB CHEMISTRY METHOD 12/22/2024 7:55 PM [facility] BUN 12 5 - 25 mg/dL LAB CHEMISTRY METHOD 12/22/2024 7:55 PM [facility] Creatinine 0.86 0.50 - 1.10 mg/dL LAB CHEMISTRY METHOD 12/22/2024 7:55 PM [facility] eGFR 90 >=60 mL/min/1. 73m2 LAB CHEMISTRY METHOD 12/22/2024 7:55 PM [facility] Comment:Calculation based on the Chronic Kidney Disease Epidemiology Collaboration (CKD-EPI) equation refit without adjustment for race. BUN/Creatinine Ratio 14.0 LAB CHEMISTRY METHOD 12/22/2024 7:55 PM [facility] Calcium 8.6 8.5 - 10.5 mg/dL LAB CHEMISTRY METHOD 12/22/2024 7:55 PM [facility] AST (SGOT) 16 10 - 42 unit/L LAB CHEMISTRY METHOD 12/22/2024 7:55 PM [facility] ALT (SGPT) 22 10 - 60 unit/L LAB CHEMISTRY METHOD 12/22/2024 7:55 PM [facility] Alkaline Phosphatase 65 42 - 121 unit/L LAB CHEMISTRY METHOD 12/22/2024 7:55 PM [facility] Total Protein 7.2 6.0 - 8.0 g/dL LAB CHEMISTRY METHOD 12/22/2024 7:55 PM [facility] Albumin 3.7 3.2 - 5.0 g/dL LAB CHEMISTRY METHOD 12/22/2024 7:55 PM [facility] Total Bilirubin 0.4 0.0 - 1.4 mg/dL LAB CHEMISTRY METHOD 12/22/2024 7:55 PM [facility] Blood Venous blood specimen / Unknown Venipuncture / Unknown 12/22/2024 9:44 AM EDT 12/22/2024 9:44 AM EDT us Luisa VALADEZ LAB BLOOD ORDERABLES Final Re sult [facility] [address] [place] [address], * HIV Screening (09/17/2023) HIV Screening abstracted Historical Provider HEALTH MAINTENANCE Final Result * Cervical Cancer Screening: HPV (04/04/2022) Pathologist [facility] Cervical Cancer Screening: HPV abnormal, abstracted us Historical Provider HEALTH MAINTENANCE Final Result from Last 3 Months or Most Recently Relevant to Health Maintenance Insurance [facility] [employer] Care Teams 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
[2025-01-12] MEDS: Ibuprofen Oral Susp 200 MG/10 ML ORAL.SUSP 600 MG PO (07:32)
[2025-01-12 07:35] LABS: Alanine Aminotransferase 16 U/L (0-31); Albumin Level 3.8 g/dL (3.5-5.0); Alkaline Phosphatase 57 U/L (39-117); Anion Gap 11 (12-20); Aspartate Amino Transferase 20 U/L (5-31); Blood Urea Nitrogen 10 mg/dL (9-16); Calcium 8.4 mg/dL (8.4-10.2); Carbon Dioxide 25 mmol/L (22-29); Chloride 109 mmol/L (96-108); Creatinine Clr Calc Pharmacy 83.9; Estimated Glomerular Filt Rate > 60; Potassium 3.8 mmol/L (3.3-5.1); Sodium 141 mmol/L (135-145); Total Protein 6.9 g/dL (6.5-8.0)
[2025-01-12 07:55] LABS: Resp Syncy Virus RNA Qual PCR NEGATIVE (Negative); SARS COV2 PCR INHOUSE NEGATIVE (Negative)
[2025-01-12 08:20] VITALS: BP 111/60; PULSE 68; RESP 16; TEMP 37.6; O2SAT 97
== END 2025-01-12 08:21 | disposition home or self-care (01) ==
PROVIDERS: Emergency Provider Emergency Medicine; PCP Internal Medicine
DX: J02.0 Streptococcal pharyngitis (principal); R50.9 Fever, unspecified
CPT/HCPCS: 80053; 85025; 87637; 87651; 99283; J1100

== ENCOUNTER 2025-03-20 17:00 | Emergency (ER) | payer OTHER, SELFPAY ==
--- NOTE | 2025-03-20 | ECG_ITS ---
Test Reason : SOB Blood Pressure : */* mmHG Vent. Rate : 73 BPM Atrial Rate : 73 BPM P-R Int : 116 ms QRS Dur : 72 ms QT Int : 392 ms P-R-T Axes : 57 49 40 degrees QTcB Int : 431 ms Normal sinus rhythm Normal ECG When compared with ECG of 26-Oct-2018 17:07, Nonspecific T wave abnormality now evident in Inferior leads Nonspecific T wave abnormality now evident in Anterior leads Referred By: Generic ED Physician Electronically Signed By: ANDRES BATES
--- NOTE | ~2025-03-20 | XR_ITS ---
CLINICAL HISTORY: cough, chest pressure, SOB 2 view chest x-ray Comparison: CR/SR - XR CHEST 2 VIEWS - 09/09/22 13:19 EST Findings: Heart size is normal. Pulmonary vasculature within normal limits. No consolidation, pleural effusion or pneumothorax. No acute fracture. IMPRESSION: 1. No acute findings. This document has been electronically signed by: Niharika Walker MD on 03/20/2025 18:15:00
[2025-03-20 17:12] VITALS: BP 122/56; PULSE 78; RESP 20; TEMP 36.8; O2SAT 99; BMI 31.5
--- NOTE | 2025-03-20 17:30 | ED_ITS ---
HPI - General Adult General Chief complaint: Upper Respiratory Symptoms Stated complaint: Chest pressure, congestion, cough Time Seen by Provider: 03/20/25 21:04 Source: patient and RN notes reviewed Mode of arrival: ambulatory Limitations: no limitations History of Present Illness ED Provider: Debby Shetty PA-C HPI narrative: Patient arrives to the emergency department today for evaluation of URI symptoms that started 3 days ago. She is not endorsing any fevers chills or night sweats. She has postnasal and chest congestion. She suspects that she has seasonal allergies but has not taken anything for it. She has no difficulty with swallowing and no painful breathing. Reports no shortness of breath with exertion orthopnea. She has not taken anything for her symptoms. Cough is dry and nonproductive. She is without any abdominal pain or nausea vomiting or diarrhea. She is denying any reactive airway disease and no travel. She is able tolerate p.o. fluids and void regularly. Related Data Previous Rx's ?Medication ?Instructions ?Recorded sulfamethoxazole 800 1 tab PO Q12H 3 days #6 tabs 11/07/20 mg-trimethoprim 160 mg tablet (Bactrim DS) nitrofurantoin 100 mg PO Q12H 5 days #10 ca ps 10/15/21 monohydrate/macrocrystals 100 mg capsule (Macrobid) cephalexin 500 mg tablet 500 mg PO Q6H 10 days #40 ta bs 11/21/21 doxycycline hyclate 100 mg capsule 100 mg PO BID 10 da ys #20 caps 11/21/21 albuterol sulfate 90 mcg/actuation 2 puff inhalation Q 4-6H PRN 09/09/22 aerosol inhaler shortness of breath or wheez ing #6.7 grams benzonatate 100 mg capsule 100 mg PO TID PRN cough #14 caps 09/09/22 fluticasone propionate 50 2 spray intranasal DAILY #16 grams 09/09/22 mcg/actuation nasal spray,suspension (Flonase Allergy Relief) prednisone 20 mg tablet 40 mg (2 x 20 mg) PO DAILY 5 days 09/09/22 #10 tabs cefuroxime axetil 500 mg tablet 500 mg PO BID #20 tabs 01/26/23 amoxicillin 500 mg capsule 500 mg PO BID 10 days #20 c aps 01/12/25 albuterol sulfate 90 mcg/actuation 1 inh inhalation QI D PRN shortness 03/20/25 aerosol inhaler (Ventolin HFA) of breath or wheezing # 6.7 grams Allergies Allergy/AdvReac Type Severity Reaction Status Date / Time No Known Allergies Allergy Verified 03/20/25 17:14 Review of Systems 2 Review of Systems: Yes all other systems are reviewed and are negative PMFSH Past Medical History Attestation statement: The following information was validated with the patient. Source: old records reviewed and nursing notes reviewed Medical History Panic attack Social History Social History Alcohol intake: never Advance Directives: No Advance Directives Information Provided: Yes Physical Exam ED Exam Exam: General: Appears in no acute distress, appears well nourished body habitus is overweight, appears stated age. No septic or ill-appearing. Vitals reviewed normal, PMH/Social and Surgical hx reviewed including allergies and current medications. - reviewed for prior visits here . Head: Normocephalic, no obvious trauma or skin lesions noted. Eyes: EOMI conjunctiva and sclera clear ENMT: moist oral mucosa, uvula is midline no trismus no tonsillar edema erythema or exudate, trace clear nasal discharge boggy nasal turbinates no erythema no purulent discharge no facial tenderness Neck: trachea midline no lymphadenopathy Cardiovascular: peripheral perfusion normal, Regular heart rate Respiratory: no respiratory distress, rhonchi bilateral upper lobes but no respiratory wheezing rales or crackles. Abdomen: nondistended Extremities: warm and moving without difficulty unless otherwise detailed in physical exam if applicable. Psych: Cooperative Neuro: Alert and oriented. Vital Signs: Vital Signs - 24 hr 03/20/25 17:12 Temperature 98.2 F Pulse Rate 78 Respiratory Rate 20 Blood Pressure 122/56 L Pulse Oximetry 99 Oxygen Delivery Method Room Air BMI result Body Mass Index 31.5 Course Course Course Narrative: RME, this is a rapid medical exam performed by Arnie Brown please refer to primary provider for complete H&P- 34-year-old female presents for evaluation of cough, chest congestion for 2-3 days. She has pleuritic chest pain, EKG performed on arrival Medical Decision Making Medical Decision Making MDM Narrative: The patient presents with symptoms that do not suggest middle or external ear infection, strep throat, mononucleosis, tonsillitis, bacterial sinusitis, bronchitis, or pneumonia. Physical examination reveals no significant findings such as otalgia, erythema, exudate, lymphadenopathy, or abnormal lung sounds. They have reassuring vitals and are maintaining their fluids. Imaging is not indicated at this time, nor are oral antibiotics, oral steroids, or breathing treatments. The patient is stable, and either the patient or accompanying family/friend was provided with strict return precautions and ED warning signs. [id number] medications and adequate hydration were recommended for symptom management. The patient agreed with the treatment plan and was discharged home in stable condition. Differential Diagnosis Differential Diagnoses: The differential diagnosis associated with the presentation includes AOM/AOe Pneumonia bronchitis, COVID flu strep Reactive airway disease Lab Data 03/20/25 17:29 03/20/25 17:29 Labs: Lab Results 03/20/25 Range/Units 17:29 WBC 9.1 (4.8-10.8) X10*3/uL RBC 4.56 (4.20-5.50) X10*6/uL Hgb 12.4 (12.0-16.0) g/dl Hct 37.5 (37.0-47.0) % MCV 82.2 (80.0-98.0) fL MCH 27.2 (27.0-33.0) pg MCHC 33.1 (31.0-35.0) g/dl RDW 13.9 (11.0-16.0) % Plt Count 265 (160-400) X10*3/uL MPV 9.6 (9.4-12.3) fL Immature Gran % (Auto) 0.1 (0.0-0.4) % Neut % (Auto) 48.1 (45-73) % Lymph % (Auto) 30.6 (20-40) % [place] % (Auto) 6.5 (2-11) % Eos % (Auto) 14.0 H (0-4) % Baso % (Auto) 0.7 (0-2) % Lymph # (Auto) 2.8 (1.2-4.9) X10*3/uL [place] # (Auto) 0.6 (0.1-1.2) X10*3/uL Eos # (Auto) 1.3 H (0.0-0.4) X10*3/uL Baso # (Auto) 0.1 (0.0-0.2) X10*3/uL Abs Immat Gran (auto) 0.01 (0.00-0.03) X10*3/uL Absolute Neuts (auto) 4.4 (2.0-8.3) x10*3/uL Absolute Nucleated RBC 0.000 (0.0-0.012) X10*3/uL Nucleated RBC % (auto) 0.0 (0.0-0.2) /100WBC Sodium 142 (135-145) mmol/L Potassium 4.0 (3.3-5.1) mmol/L Chloride 111 H (96-108) mmol/L Carbon Dioxide 26 (22-29) mmol/L Anion Gap 9 L (12-20) BUN 16 (9-16) mg/dL Creatinine 0.90 (0.5-1.4) mg/dL Estim Creat Clear Calc 84.3 Estimated GFR > 60 Random Glucose 102 (60-115) mg/dL Calcium 8.7 (8.4-10.2) mg/dL Total Bilirubin 0.2 (0.0-1.0) mg/dL AST 24 (5-31) U/L ALT 18 (0-31) U/L Alkaline Phosphatase 64 (39-117) U/L Total Protein 7.3 (6.5-8.0) g/dL Albumin 4.2 (3.5-5.0) g/dL COVID-19 (ANA) Negative (Negative) COVID-19 Clin Com See Note Influenza Type A (EYAL) Negative (Negative) Influenza Type B (EYAL) Negative (Negative) Influenza A & B Note See Note S. pyogenes GrpA EYAL Negative (Negative) Discharge Plan Discharge Clinical Impression: Bronchitis Patient Disposition: Home, Self-Care Additional Instructions: Acute bronchitis is a common clinical condition characterized by an acute onset but persistent cough, with or without sputum production. It is typically self- limited, resolving often within three weeks. Symptoms result from inflammation of the lower respiratory tract and are most frequently due to a viral infection. For most patients, acute bronchitis is a self-limited illness that does not require specific diagnostic testing or treatment. Treatment is focused on patient education and supportive care. Antibiotics are not needed for the great majority of patients with acute bronchitis but are greatly overused for this condition. Reducing antibiotic use for acute bronchitis is a national and international health care priority. Non pharmaceutical treatment: throat lozenges, warm tea with honey, and/or smoking cessation or avoidance of secondhand smoke. If you feel your symptoms are worsening, you develop a fever, trouble breathing, or any other new, concerning symptoms please be re-evaluated immediately. Your chest xray shows no pneumonia. You have also tested-negative to COVID fluid strep. Prescriptions: New albuterol sulfate [Ventolin HFA] 90 mcg/actuation HFA aerosol inhaler 1 inh inhalation QID PRN (Reason: shortness of breath or wheezing) Qty: 6.7 0RF No Action sulfamethoxazole-trimethoprim [Bactrim DS] 800-160 mg tablet 1 tab PO Q12H 3 Days Qty: 6 0RF nitrofurantoin monohyd/m-cryst [Macrobid] 100 mg capsule 100 mg PO Q12H 5 Days Qty: 10 0RF Rx Instructions: must administer with a meal/food doxycycline hyclate 100 mg capsule 100 mg PO BID 10 Days Qty: 20 0RF cephalexin 500 mg tablet 500 mg PO Q6H 10 Days Qty: 40 0RF prednisone 20 mg tablet 40 mg PO DAILY 5 Days Qty: 10 0RF benzonatate 100 mg capsule 100 mg PO TID PRN (Reason: cough) Qty: 14 0RF fluticasone propionate [Flonase Allergy Relief] 50 mcg/actuation spray,suspension 2 spray intranasal DAILY Qty: 16 0RF Rx Instructions: administer into each nostril albuterol sulfate 90 mcg/actuation HFA aerosol inhaler 2 puff inhalation Q4-6H PRN (Reason: shortness of breath or wheezing) Qty: 6.7 0RF cefuroxime axetil 500 mg tablet 500 mg PO BID Qty: 20 0RF amoxicillin 500 mg capsule 500 mg PO BID 10 Days Qty: 20 0RF Referrals: Ibis Jackson MD [Primary Care Provider, Internal Medicine] Referral Note: ED follow-up Stand Alone Forms: Work/School Release Print Language: Cymraes
[2025-03-20 17:33] LABS: MANUAL DIFF FLAG NO
[2025-03-20 17:34] LABS: Hematocrit 37.5 % (37.0-47.0); Hemoglobin 12.4 g/dl (12.0-16.0); Imm Gran Abs Auto 0.01 X10*3/uL (0.00-0.03); Imm Gran Pct Auto 0.1 % (0.0-0.4); Lymphocytes Absolute Auto 2.8 X10*3/uL (1.2-4.9); Mean Corpuscular HGB Conc 33.1 g/dl (31.0-35.0); Mean Corpuscular Hemoglobin 27.2 pg (27.0-33.0); Mean Corpuscular Volume 82.2 fL (80.0-98.0); NRBC Abs Auto 0.000 X10*3/uL (0.0-0.012); NRBC Pct Auto 0.0 /100WBC (0.0-0.2); Platelet Count 265 X10*3/uL (160-400); Red Blood Count 4.56 X10*6/uL (4.20-5.50); White Blood Count 9.1 X10*3/uL (4.8-10.8)
[2025-03-20 17:43] LABS: IDNOW Serial# 08D9AD1C; Strep A Nucleic Acid Negative (Negative)
[2025-03-20 17:49] LABS: Alanine Aminotransferase 18 U/L (0-31); Albumin Level 4.2 g/dL (3.5-5.0); Alkaline Phosphatase 64 U/L (39-117); Anion Gap 9 (12-20); Aspartate Amino Transferase 24 U/L (5-31); Blood Urea Nitrogen 16 mg/dL (9-16); COVID-19 Test Negative (Negative); Calcium 8.7 mg/dL (8.4-10.2); Carbon Dioxide 26 mmol/L (22-29); Chloride 111 mmol/L (96-108); Creatinine Clr Calc Pharmacy 84.3; Estimated Glomerular Filt Rate > 60; IDNOW Serial# 55D5AD1C; Potassium 4.0 mmol/L (3.3-5.1); Sodium 142 mmol/L (135-145); Total Protein 7.3 g/dL (6.5-8.0)
[2025-03-20 17:57] LABS: IDNOW Serial# 58CA691E; Influenza B2 Negative (Negative)
--- OUTSIDE RECORDS SUMMARY | 2025-03-20 19:31 | XMS_ITS | Clinical Summary ---
Author Organization [facility] [address] [place] [address] [place] [address] Phone Care Team Providers Care Compensation Specialist Name Role Phone Ibis Jackson MD Primary Care Provider [phone] Allergies No known active allergies Medications nystatin-triamc [...] Encounters Date Type Department Care Team Description 02/19/2025 Nurse Triage Adult Medicine [address] [phone] Ibis Jackson MD 12/22/2024 9:00 AM EDT Office Visit Adult Medicine [address] [phone] Luisa Parsons PA Annual physical exam (Primary Dx); Lipid screening; Subclinical hyperthyroidism; Family history of ovarian cancer from Last 3 Months Immunizations Name Administration Dates Next Due HPV 9-valent (Gardisil) 9yo to less than 46yo ,04/04/2022 Influenza Quadravalent, MDCK , 0.5ml, preservative free (Flucelvax) 6mo and older 08/12/2020 PPD Test 07/28/2020 XtremeData (ages 12 & older) SHARLENE S-CoV-2 COVID-19, [...] BELT ABDOMINOPLASTY 09/20/2021 HISTORICAL TUMMY TUCK; COMMENT: [place] [facility] 10/01/2023 - 10/30/2023 COMMENT: [facility] in [place] Medical History Medical History Date Comments Anxiety [...] for your loved ones. For example, child day care teacher or elderly care for an older adult? [...] Ectopic Multiple Livin g Live Births 3 Date Outcome GA Total Labor Labor/2nd/3rd Weight [...] 9:00 AM EDT Office Visit Adult Medicine [facility] [address] [place], [place] [phone] Ibis Jackson MD [address], [place] Health Maintenance Due Date Last Done Comments Hepatitis B Vaccines (1 of 3 - 19+ 3-dose series) 2008 Hepatitis C Screening 06/10/2022 HPV Vaccines (3 - 3-dose SCDM series) 10/03/2022 06/05/2022, 04/04/2022 COVID-19 Vaccine ( season) 2025 08/15/2021, 08/15/2021, 10/25/2020, Additional history exists Influenza Vaccine (#1) 2025 08/12/2020 Social Influencers of Health Screening 12/22/2025 12/22/2024 Cervical Cancer Screening: HPV 04/04/2027 04/04/2022 Cholesterol Screening (Lipid Panel) 12/22/2029 12/22/2024, 09/17/2023 DTaP,Tdap,and Td Vaccines (4 - Td or Tdap) 06/12/2032 06/12/2022, 01/30/2022, 08/12/2020 HIV Screening Completed 09/17/2023 Depression Screening Completed 12/22/2024 HIB Vaccines Aged Out No longer eligi [...] Routine 12/22/2024 9:44 AM EDT Subclinical hyperthyroidism HM HIV SCREENING Routine 09/17/2023 HM HPV Routine 04/04/2022 from Last 3 Months or Most Recently Relevant to Health Maintenance Results * Interferon gamma interpretation (12/22/2024 9:44 AM EDT) [facility] Quantiferon Plus Interpretation Negative Negative LAB CHEMISTRY METHOD 12/23/2024 10:24 AM EDT [facility] Blood Venous blood specimen / Unknown Venipuncture / Unknown 12/22/2024 9:44 AM EDT 12/22/2024 9:44 AM EDT us Luisa VALADEZ LAB BLOOD ORDERABLES Final Re sult [facility] [address] [place] [address], * Interferon gamma antigen 2 (12/22/2024 9:44 AM EDT) Blood Venous blood specimen / Unknown Venipuncture / Unknown 12/22/2024 9:44 AM EDT 12/22/2024 9:44 AM EDT us Luisa VALADEZ LAB BLOOD ORDERABLES Final Re sult Performing Organization Address [facility] Co de Phone Number [facility] [address] [place] [address], * Interferon gamma antigen 1 (12/22/2024 9:44 AM EDT) Blood Venous blood specimen / Unknown Venipuncture / Unknown 12/22/2024 9:44 AM EDT 12/22/2024 9:44 AM EDT us Luisa VALADEZ LAB BLOOD ORDERABLES Final Re sult Performing Organization Address [facility] de Phone Number [facility] [address] [place] [address], [place] [phone] * Interferon gamma mitogen (12/22/2024 9:44 AM EDT) Blood Venous blood specimen / Unknown Venipuncture / Unknown 12/22/2024 9:44 AM EDT 12/22/2024 9:44 AM EDT us Luisa VALADEZ LAB BLOOD ORDERABLES Final Re sult Performing Organization Address [facility] Co de Phone Number [facility] [address] [place] [address], [place] [phone] * Interferon gamma NIL (12/22/2024 9:44 AM EDT) Blood Venous blood specimen / Unknown Venipuncture / Unknown 12/22/2024 9:44 AM EDT 12/22/2024 9:44 AM EDT us Luisa VALADEZ LAB BLOOD ORDERABLES Final Re sult Performing Organization Address [facility] Co de Phone Number [facility] [address] [place] [address], [place] [phone] * Lipid panel with reflex to direct LDL (12/22/2024 9:44 AM EDT) Pathologist [facility] Cholesterol 126 0 - 200 mg/dL LAB CHEMISTRY METHOD 12/22/2024 7:55 PM EDT [facility] Triglycerides 75 0 - 150 mg/dL LAB CHEMISTRY METHOD 12/22/2024 7:55 PM EDT [facility] HDL 55 >=40 mg/dL LAB CHEMISTRY METHOD 12/22/2024 7:55 PM EDT [facility] LDL Calculated 56 0 - 100 mg/dL LAB CHEMISTRY METHOD 12/22/2024 7:55 PM EDT [facility] VLDL Cholesterol Ky 15 mg/dL LAB CHEMISTRY METHOD 12/22/2024 7:55 PM EDT [facility] Non HDL Chol. (LDL+VLDL) 71 <145 mg/dL LAB CHEMISTRY METHOD 12/22/2024 7:55 PM EDT [facility] Chol/HDL Ratio 2.3 0.0 - 4.4 LAB CHEMISTRY METHOD 12/22/2024 7:55 PM EDT [facility] Blood Venous blood specimen / Unknown Venipuncture / Unknown 12/22/2024 9:44 AM EDT 12/22/2024 9:44 AM EDT us Luisa VALADEZ LAB BLOOD ORDERABLES Final Re sult [facility] [address] [place] [address], [place] [phone] * (ABNORMAL) CBC auto differential (12/22/2024 9:44 AM EDT) [facility] WBC 6.9 4.8 - 10.8 K/mcL LAB HEMETOLOGY METHOD 12/22/2024 12:22 PM EDT [facility] RBC 4.70 3.80 - 4.80 M/mcL LAB HEMETOLOGY METHOD 12/22/2024 12:22 PM [facility] Hemoglobin 13.1 11.5 - 16.0 g/dL LAB HEMETOLOGY METHOD 12/22/2024 12:22 PM [facility] Hematocrit 42.0 35.0 - 47.0 % LAB HEMETOLOGY METHOD 12/22/2024 12:22 PM [facility] MCV 89.7 79.0 - 98.0 FL LAB HEMETOLOGY METHOD 12/22/2024 12:22 PM [facility] MCH 28.0 27.0 - 32.0 pcg LAB HEMETOLOGY METHOD 12/22/2024 12:22 PM [facility] MCHC 31.2(L) 32.0 - 37.0 g/dL LAB HEMETOLOGY METHOD 12/22/2024 12:22 PM [facility] RDW 13.1 11.0 - 15.0 % LAB HEMETOLOGY METHOD 12/22/2024 12:22 PM [facility] Platelets 282 130 - 400 K/mcL LAB HEMETOLOGY METHOD 12/22/2024 12:22 PM [facility] MPV 10.7 7.0 - 11.0 FL LAB HEMETOLOGY METHOD 12/22/2024 12:22 PM [facility] NRBC 0.0 <1.0 % LAB HEMETOLOGY METHOD 12/22/2024 12:22 PM [facility] NRBC Absolute 0.00 <0.10 K/mcL LAB HEMETOLOGY METHOD 12/22/2024 12:22 PM [facility] Neutrophils Relative 58.6 % LAB HEMETOLOGY METHOD 12/22/2024 12:22 PM [facility] Lymphocytes Relative 27.6 % LAB HEMETOLOGY METHOD 12/22/2024 12:22 PM [facility] Monocytes Relative 6.6 % LAB HEMETOLOGY METHOD 12/22/2024 12:22 PM [facility] Eosinophils Relative 6.2 % LAB HEMETOLOGY METHOD 12/22/2024 12:22 PM [facility] Basophils Relative 0.9 % LAB HEMETOLOGY METHOD 12/22/2024 12:22 PM [facility] Immature Granulocytes Relative 0.1 % LAB HEMETOLOGY METHOD 12/22/2024 12:22 PM [facility] Neutrophils Absolute 4.06 1.50 - 7.00 K/mcL LAB HEMETOLOGY METHOD 12/22/2024 12:22 PM [facility] Lymphocytes Absolute 1.91 1.00 - 5.00 K/mcL LAB HEMETOLOGY METHOD 12/22/2024 12:22 PM [facility] Monocytes Absolute 0.46 0.20 - 1.00 K/mcL LAB HEMETOLOGY METHOD 12/22/2024 12:22 PM [facility] Eosinophils Absolute 0.43 0.00 - 0.50 K/mcL LAB HEMETOLOGY METHOD 12/22/2024 12:22 PM [facility] Basophils Absolute 0.06 0.00 - 0.20 K/mcL LAB HEMETOLOGY METHOD 12/22/2024 12:22 PM [facility] Immature Granulocytes Absolute 0.01 0.00 - 0.03 K/mcL LAB HEMETOLOGY METHOD 12/22/2024 12:22 PM [facility] Blood Venous blood specimen / Unknown Venipuncture / Unknown 12/22/2024 9:44 AM EDT 12/22/2024 9:44 AM EDT Luisa VALADEZ LAB BLOOD ORDERABLES Final Re sult [facility] [address] [place] [address], [place] [phone] * Thyroid stimulating hormone (12/22/2024 9:44 AM EDT) TSH 0.76 0.40 - 4.00 mcIU/mL LAB CHEMISTRY METHOD 12/22/2024 8:24 PM EDT [facility] Blood Venous blood specimen / Unknown Venipuncture / Unknown 12/22/2024 9:44 AM EDT 12/22/2024 9:44 AM EDT Luisa VALADEZ LAB BLOOD ORDERABLES Final Re sult Performing Organization Address [facility]/ZIP Co de Phone Number [facility] [address] [place] [address], [place] [phone] * Comprehensive metabolic panel (12/22/2024 9:44 AM EDT) Pathologist [facility] Sodium 140 133 - 145 mmol/L LAB CHEMISTRY METHOD 12/22/2024 7:55 PM [facility] Potassium 5.2 3.5 - 5.5 mmol/L LAB CHEMISTRY METHOD 12/22/2024 7:55 PM [facility] Chloride 110 96 - 110 mmol/L LAB CHEMISTRY METHOD 12/22/2024 7:55 PM [facility] CO2 27 21 - 32 mmol/L LAB CHEMISTRY METHOD 12/22/2024 7:55 PM [facility] Anion Gap 3 3 - 11 LAB CHEMISTRY METHOD 12/22/2024 7:55 PM [facility] Glucose 87 70 - 100 mg/dL LAB CHEMISTRY METHOD 12/22/2024 7:55 PM [facility] BUN 12 5 - 25 mg/dL LAB CHEMISTRY METHOD 12/22/2024 7:55 PM [facility] Creatinine 0.86 0.50 - 1.10 mg/dL LAB CHEMISTRY METHOD 12/22/2024 7:55 PM [facility] eGFR 90 >=60 mL/min/1. 73m2 LAB CHEMISTRY METHOD 12/22/2024 7:55 PM [facility] Comment:Calculation based on the Chronic Kidney Disease Epidemiology Collaboration (CKD-EPI) equation refit without adjustment for race. BUN/Creatinine Ratio 14.0 LAB CHEMISTRY METHOD 12/22/2024 7:55 PM [facility] Calcium 8.6 8.5 - 10.5 mg/dL LAB CHEMISTRY METHOD 12/22/2024 7:55 PM [facility] AST (SGOT) 16 10 - 42 unit/L LAB CHEMISTRY METHOD 12/22/2024 7:55 PM [facility] ALT (SGPT) 22 10 - 60 unit/L LAB CHEMISTRY METHOD 12/22/2024 7:55 PM [facility] Alkaline Phosphatase 65 42 - 121 unit/L LAB CHEMISTRY METHOD 12/22/2024 7:55 PM [facility] Total Protein 7.2 6.0 - 8.0 g/dL LAB CHEMISTRY METHOD 12/22/2024 7:55 PM [facility] Albumin 3.7 3.2 - 5.0 g/dL LAB CHEMISTRY METHOD 12/22/2024 7:55 PM [facility] Total Bilirubin 0.4 0.0 - 1.4 mg/dL LAB CHEMISTRY METHOD 12/22/2024 7:55 PM [facility] Blood Venous blood specimen / Unknown Venipuncture / Unknown 12/22/2024 9:44 AM EDT 12/22/2024 9:44 AM EDT us Luisa VALADEZ LAB BLOOD ORDERABLES Final Re sult [facility] [address] [place] [address], * HIV Screening (09/17/2023) HIV Screening abstracted Historical Provider HEALTH MAINTENANCE Final Result * Cervical Cancer Screening: HPV (04/04/2022) Cervical Cancer Screening: HPV abnormal, abstracted Historical Provider HEALTH MAINTENANCE Final Result from Last 3 Months or Most Recently Relevant to Health Maintenance Insurance [facility] Care Teams Compensation Specialist Relationship Specialty Start Date End Date Ibis Jackson MD [address] [place] [address] PCP - General Internal Medicine 11/09/20
--- OUTSIDE RECORDS SUMMARY | 2025-03-20 19:31 | XMS_ITS ---
Author Name [facility] Organization Unknown Care Team Organization Name Specialty Phone Email Start Date End Da te [facility] Ibis Jackson Primary Care 05/09/2022 4
[2025-03-20 21:14] VITALS: BP 128/56; PULSE 68; RESP 18; TEMP 36.3; O2SAT 97
[2025-03-20 21:22] VITALS: BP 128/56; PULSE 68; RESP 18; TEMP 36.3; O2SAT 97
[2025-03-20 21:23] VITALS: BP 128/56; PULSE 68; RESP 18; TEMP 36.3; O2SAT 97
== END 2025-03-20 21:24 | disposition home or self-care (01) ==
PROVIDERS: Emergency Provider Emergency Medicine Emergency Medical Services; PCP Internal Medicine
DX: J40 Bronchitis, not specified as acute or chronic (principal); R07.89 Other chest pain; R05.9 Cough, unspecified; R09.89 Other specified symptoms and signs involving the circulatory and respiratory systems; Z11.52 Encounter for screening for COVID-19
CPT/HCPCS: 36415; 71046; 80053; 85025; 87502; 87635; 87651; 93005; 99283; 99284

== ENCOUNTER → 2025-03-20 17:07 | Outpatient (BNV) | payer OTHER, SELFPAY | PROVIDERS: Emergency Provider Emergency Medicine Emergency Medical Services; PCP Internal Medicine; Visit Provider Internal Medicine | DX: R06.02 Shortness of breath (principal) | CPT/HCPCS: 93010 ==

== ENCOUNTER → 2025-03-20 17:20 | Outpatient (BNV) | payer OTHER, SELFPAY | PROVIDERS: PCP Internal Medicine; Visit Provider Specialist | DX: R05.9 Cough, unspecified (principal); R07.89 Other chest pain; R06.02 Shortness of breath | CPT/HCPCS: 71046 ==